=== PATIENT | male | born 1945 | race Caucasian/White ===

== ENCOUNTER 2016-03-22 06:15 | Inpatient (IN) ==
[2016-03-22] MEDS ORDERED: NS 1,000 ML IV PRN (06:41)
--- NOTE | 2016-03-22 06:48 | PROVIDER DOCUMENTATION ---
HPI-Neurological Disorder <Luis Manuel Aguilar - Last Filed: 03/22/16 09:15> - General Source: patient, family Unable to obtain history due to:: other (Marginal history due to CVA) - History of Present Illness-Neuro Context: reports: impaired speech, paresthesia, facial droop, other (slurred speech) Approximate time patient was last seen normal?: 22:00 Character of Altered Mental Status: reports: unchanged from baseline Any recent trauma/injury?: reports: none Character of Deficits: reports: new weakness, altered sensation, impaired speech , impaired swallowing, decreased ability to stand, decreased ability to walk Cognitive Baseline: alert, oriented x3 Gait Baseline: unable to walk Associated Symptoms: reports: paresthesia. denies: headache Similar Symptoms Previously?: No <Tay Harden - Last Filed: 03/22/16 10:07> - General Chief Complaint: Stroke-Like Symptoms Stated Complaint: extremity pain Time Seen by Provider: 03/22/16 06:42 Allergies/Adverse Reactions: Patient Allergies Allergy/AdvReac Type Severity Reaction Status Date / Time No Known Allergies Allergy Verified 03/22/16 06:46 Home Medications: No Home Medications 03/22/16 - History of Present Illness-Neuro Nature of Presenting Problem: He awoke this am with slurred speech and rt hemiparesis. He was alert when he went to bed at 10 pm. He is known to have HTN and DM but cannot afford meds to treat either. 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 [facility] but has no hysician and is not treating DM or HTN (Tay Harden) Review of Systems - Adult - REVIEW OF SYSTEMS - ADULT ROS:: limited per condition Constitutional: reports: no symptoms reported Eyes: reports: no symptoms reported Ears, Nose, Mouth & Throat: reports: other (speech and swallowing problems) Cardiovascular: reports: no symptoms reported Respiratory: reports: no symptoms reported Gastrointestinal: reports: no symptoms reported Genitourinary: reports: no symptoms reported Musculoskeletal: reports: see HPI Integumentary: reports: no symptoms reported Neurological: reports: see HPI Psychiatric: reports: see HPI Endocrine: reports: increased thirst, polyuria, other (Known to have DM - notreatment) Hematologic/Lymphatic: reports: no symptoms reported Allergic/Immunologic: reports: no symptoms reported <Tay Harden - Last Filed: 03/22/16 10:07> Past History - Adult - PAST MEDICAL HISTORY-ADULT Review of Records: reports: Nursing Assessment Review Psychiatric: reports: denies history Endocrine/Immune: reports: Diabetes Diabetes Type: Type 2 Diabetes controlled by:: Diet - PRIOR SURGERIES/PROCEDURES Surgical/Procedure History: reports: none - SOCIAL HISTORY Smoking: denies Substance Use: none/never Living Situation: family <Tay Harden - Last Filed: 03/22/16 10:07> Physical Exam- Neurological - Physical Exam-Neuro Initial Vital Signs Reviewed: Yes General Appearance: mild distress, cachetic, slow to respond Eye Exam: bilateral eye: normal inspection HENMT: pharynx normal Head Injury: no evidence of injury Neck: non-tender Respiratory: chest non-tender, lungs clear, normal breath sounds Cardiovascular: normal peripheral pulses, regular rate, rhythm, extra beats ( split first heart tone) Abdominal Exam: non tender, soft, no organomegaly Lymphatic: no adenopathy Peripheral Pulses: radial (R): 2+, radial (L): 2+ Extremity: non-tender. 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 negative: normal speech Neurologic: facial droop, motor weakness, sensory deficit (bilateral stocking and glove neuropathy) Integumentary: normal color Psych/Mental Status: negative: normal mood/affect - Glascow Coma Scale Total Glascow Score: 15 <Tay Harden - Last Filed: 03/22/16 10:07> Progress - EKG 1 Time of EKG reading by physician:: 06:15 EKG Read and Signed by:: Tay Harden EKG Interpretation (*Must complete 3 of following elements*): Abnormal Rate: 89 Rhythm: NSR [place]: normal QRS: RBB AR Interval: normal ST Wave: non-specific ST changes - XRAY 1 XRAY Study: Chest Impression: Abnormal XRAY Interpretation: low lung volumes otherwise nml - CT/MRI 1 CT Study: Head Impression: Normal CT Results: negative <Luis Manuel Aguilar - Last Filed: 03/22/16 09:15> - XRAY 1 XRAY Study: Chest (NAD) Impression: Normal - CT/MRI 1 CT Study: Head Impression: Abnormal, See EMR Report <Tay Harden - Last Filed: 03/22/16 10:07> - PLAN OF CARE/RESULTS Progress/Plan/Lab Results: plan of care-cva work up (Luis Manuel Aguilar) Reassed and discussed CT results. (Tay Harden) Departure <Luis Manuel Aguilar - Last Filed: 03/22/16 09:15> - Departure Time of Disposition Order: 10:04 Certified Medical Emergency: Emergent <Tay Harden - Last Filed: 03/22/16 10:07> - Departure DIAGNOSIS: Ischemic brain injury, Diabetes 1.5, managed as type 2, Hypertension Disposition: ADMITTED INPATIENT 09 Condition: Fair Attestation - Scribe Verification/Attestation Scribe:: Luis Manuel Aguilar Acting as Scribe for:: Tay Harden Scribe documention review:: This chart was documented by a scribe and accurately reflects the service the provider performed and the decisions made by the provider. <Luis Manuel Aguilar - Last Filed: 03/22/16 09:15> Physician Attestation - Physician Attestation I, the provider, attest to the following statement:: Tay Harden Physician documentation Attestation:: This documentation recorded by the scribe accurately reflects the service I personally performed and the decisions made by me. <Luis Manuel Aguilar - Last Filed: 03/22/16 09:15>
[2016-03-22 07:01] LABS: MANUAL DIFF NEEDED? NO
[2016-03-22 07:11] LABS: BASO% 0.2 % (0.0-0.8); EOS# 0.08 X1000 (0.0-0.7); EOS% 1.6 % (0.0-10.0); HEMOGLOBIN 14.8 g/dL (14.0-18.0); IMM GRAN# 0.03 X1000 (0.0-0.04); IMM GRAN% 0.6 % (0.0-0.5); LYMPH# 1.08 X1000 (1.2-3.4); LYMPH% 22.1 % (20.5-51.1); MCHC 36.1 g/dL (33-37); MONO# 0.68 X1000 (0.11-0.59); MONO% 13.9 % (1.7-9.3); MPV 10.4 FL (7.4-10.4); NEUT% 61.6 % (42.2-75.2); PLT 269 X1000 (130-400); RBC 4.94 XMIL (4.7-6.1)
[2016-03-22 07:19] LABS: INR 1.03; PROTIME 10.9 Seconds (9.2-11.7); PTT 23.4 Seconds (22.0-36.0)
[2016-03-22 07:30] LABS: URINE CULTURE NEEDED? NO; URINE SOURCE CLEAN CATCH
[2016-03-22 07:31] LABS: URINE MICRO REVIEW NEEDED? NO
[2016-03-22] MEDS ORDERED: ASPIRIN PO ONE (07:31)
[2016-03-22 07:36] LABS: UR EPITHELIAL CELLS <10 /HPF (<10); URINE BACTERIA NEGATIVE /HPF; URINE RBC <10 /HPF (<10); URINE WBC <10 /HPF (<10)
[2016-03-22 07:37] LABS: BILIRUBIN URINE NEGATIVE (NEGATIVE); BLOOD URINE NEGATIVE (NEGATIVE); COLOR YELLOW; GLUCOSE URINE >1000 mg/dL (NEGATIVE); LEUKOCYTES URINE NEGATIVE (NEGATIVE); NITRITE URINE NEGATIVE (NEGATIVE); PH URINE 5.5; PROTEIN URINE 30 mg/dL (NEGATIVE); SP GRAVITY URINE 1.041; TURBIDITY URINE CLEAR (CLEAR); UROBILINOGEN URINE NORMAL (NORMAL)
--- NOTE | 2016-03-22 07:49 | Diag Imaging Result Document ---
PROCEDURE NAME: CHEST-PORTABLE - 03/22/2016 PORTABLE CHEST X-RAY, 03/22/2016: COMPARISON: None. FINDINGS: Lung volumes are low. There is some trace atelectasis at the lateral left lung base. Accounting for this, no definite infiltrates. Heart size and pulmonary vascularity is normal. IMPRESSION: No definite acute disease.
[2016-03-22 07:50] LABS: AGAP 16; ALBUMIN 3.4 g/dL (3.5-5.0); ALKALINE PHOSPHATASE 72 U/L (32-122); BUN 13 mg/dL (8-22); CALCIUM 7.7 mg/dL (8.8-10.2); CHLORIDE 106 mmol/L (98-107); COSMO 296; GOT 8 U/L (10-34); GPT 8 U/L (10-44); POTASSIUM 2.7 mmol/L (3.5-5.1); SODIUM 144 mmol/L (136-145); TCO2 22 mmol/L (25-35); TOTAL BILIRUBIN 0.39 mg/dL (0.20-1.00); TOTAL PROTEIN 5.5 g/dL (6.3-8.3)
--- NOTE | 2016-03-22 07:52 | Diag Imaging Result Document ---
PROCEDURE NAME: HEAD W/O CONTRAST - 03/22/[address]: COMPARISON: None. FINDINGS: The ventricles and sulci are normal in size and contour. There is no mass, hemorrhage, or evidence of acute ischemia. The bony calvaria is intact. The visualized paranasal sinuses and mastoid air cells are clear. IMPRESSION: Negative head CT.
[2016-03-22 08:00] LABS: UR AMPHETAMINES QUAL NONE DETECTED (NONE DETECT); UR BARBITUATES QUAL NONE DETECTED (NONE DETECT); UR BENZODIAZEPIN QUAL NONE DETECTED (NONE DETECT); UR CANNABINOIDS QUAL NONE DETECTED (NONE DETECT); UR COCAINE QUAL NONE DETECTED (NONE DETECT); UR METHADONE QUAL NONE DETECTED (NONE DETECT); UR OPIATES QUAL NONE DETECTED (NONE DETECT); UR OXYCODONE QUAL NONE DETECTED (NONE DETECT); UR PCP QUAL NONE DETECTED (NONE DETECT)
[2016-03-22] MEDS ORDERED: LABETALOL IV ONE (09:50)
[2016-03-22] MEDS ORDERED: HUMULIN R SUBQ ONE (09:51)
[2016-03-22] MEDS ORDERED: POTASSIUM CHLORIDE 40 MEQ/SWI 100 ML IV ONE (10:27)
[2016-03-22 10:58] LABS: HDL 42 mg/dL (35-55); LDL 167 mg/dL; TRIGLYCERIDES 115 mg/dL (39-160); VLDL 23 mg/dL
--- NOTE | 2016-03-22 12:04 | Diag Imaging Result Document ---
PROCEDURE NAME: MRI BRAIN W W/O CONTRAST - 03/22/2016 MRI BRAIN WITHOUT AND WITH INTRAVENOUS CONTRAST: COMPARISON: Head CT earlier 03/22/2016. FINDINGS: There is an area of restricted diffusion at the paramedian left apolonia. This is compatible with an acute infarction. No intracranial mass or hemorrhage. No other areas of abnormal signal. No abnormal contrast enhancement. Midline structures are unremarkable. IMPRESSION: Acute left paramedian pontine infarction.
--- NOTE | 2016-03-22 12:05 | Diag Imaging Result Document ---
PROCEDURE NAME: MRA NECK W/CONT - 03/22/2016 MR ANGIOGRAM OF THE NECK WITH INTRAVENOUS CONTRAST: COMPARISON: None. FINDINGS: The vessels of the neck are normal. No evidence of stenosis or aneurysm. Anatomy is normal. IMPRESSION: Negative exam.
--- NOTE | 2016-03-22 12:08 | Diag Imaging Result Document ---
PROCEDURE NAME: MRA BRAIN W/O CONTRAST - 03/22/2016 MR ANGIOGRAM OF THE HEAD: COMPARISON: None. FINDINGS: Noncontrast [id number] technique was used. The intracranial arterial vessels are all normal. There is no stenosis or aneurysm. IMPRESSION: Normal exam.
--- NOTE | 2016-03-22 13:09 | HISTORY AND PHYSICAL ---
PRIMARY CARE PROVIDER: No one. CHIEF COMPLAINT: Stroke symptoms, weak, unable to move right side. HISTORY OF PRESENT ILLNESS: Mr. Asif Varner is a 70-year-old male who states that he has a history of diabetes type 2 and hypertension but does not take medications for them as he is unable to afford them. He also states that he has chronic hand and feet numbness. For the last 2- 3 months, he has been using a walker as his gait has turned into a shuffling gait. Prior to that, he was walking. He has not sought medical attention for that. Yesterday, around 10 p.m. at night, he and his went to bed. She states that he was normal at that time. He woke up at 5 a.m. this morning because he had to use the restroom and was found to be unable to move his right arm or leg and that his speech was slurred. He was brought here. Workup with head CT, currently negative, and MRI and MRA of brain and neck have been ordered. Upon assessment, he has a right facial droop. He has dysarthria. His tongue deviates to the right. He has complete hemiparesis of the right upper and lower extremity and dysarthria. He also states he has difficulty swallowing. Other symptoms that he has been having lately have been excessive thirst and urination. Other lab findings were potassium of 2.7, elevated blood sugar up to 296, anion gap of 60, urine ketones were 60, and glucose was greater than 1000 in the urine. In the ER, he has received chewable aspirin 243 mg. They gave him a 1 time dose of 10 of IV labetalol. Will hold on antihypertensives for now, allow for up to 180 systolic blood pressure to allow for better perfusion of the brain. He received 5 units subcutaneous insulin and 40 mEq of potassium and IV fluid bolus. Will admit him to the medical floor. Continue with stroke workup. Echocardiogram. Follow up on MRI/MRA of the brain and neck. Allow for permissive hypertension to perfuse his brain. Treat his diabetes. He does have a hemoglobin A1c that has come back at 12.0. He is currently NPO per the stroke protocol. We will do a sliding scale insulin and continue to follow his low-grade hyperosmolar/hyperglycemic state and we will consult Neurology. OT, PT, and ST to see. PAST MEDICAL HISTORY: 1. Untreated diabetes type 2. Hemoglobin A1c is 12.0, so, currently uncontrolled. 2. Hypertension. 3. Neuropathy of the hands and feet. 4. 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 5. Dyslipidemia. PAST SURGICAL HISTORY: None. 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 He is retired. He is and living with his . He denies alcohol, tobacco, or illicit drug use. FAMILY HISTORY: Father had a CVA. REVIEW OF SYSTEMS: Difficult to obtain but he was able to nod and say yes or no to many questions. He denied pain. He denied nausea, vomiting, or diarrhea. He denied shortness of breath and all other pertinent positives are in the above HPI. ALLERGIES: No known drug allergies. HOME MEDICATIONS: None. LABORATORY DATA: White blood cells 4000. Hemoglobin 14. Hematocrit 41. Platelet count 269,000. INR 1.03. Sodium 144. Potassium 2.7. BUN 13. Creatinine 0.3. GFR is greater than 60. Glucose most recent is 266. Hemoglobin A1c is 12. Calcium 7.7. Total bilirubin 0.39. AST . ALT 8. Troponins less than 0.01. Total protein 5.5. Albumin 3.4. Triglycerides 115. Total cholesterol 232. Total cholesterol band 232. LDL 167. Very low density is 23. HDL 42. TSH is 1.23. Urinalysis: 30 protein, greater than 1000 glucose with 60 ketones in the urine; otherwise, negative for UTI. Urine drug screen negative. IMAGING: MRI and MRA of the brain and neck all are pending. Head CT: No intracranial bleed; otherwise, a negative head CT. The sinuses are also clear. Chest x-ray: Negative for any acute findings. PHYSICAL EXAMINATION: VITAL SIGNS: Temperature 97.7 degrees. Heart rate 80. Respiratory rate 20. Blood pressure was up to 191/108. It is down to 145/49 and 100% on room air. GENERAL: Mr. Varner is a 70-year-old, ill-appearing, male. He is in no acute distress but has difficulty pronouncing words to answer all questions. HEENT: He is atraumatic, normocephalic. He has a right facial droop. Tongue deviates to the right. Pupils are equal, round, reactive. Mucous membranes are dry. Extraocular movements were intact. No issues with peripheral vision loss. He also states that his vision is normal for him. NECK: No carotid bruits heard. No JVD noted. Trachea is midline. CARDIOVASCULAR: S1, S2. Regular rate and rhythm. No rubs, gallops or murmurs . PULMONARY: Clear to auscultate with bilateral breath sounds. No accessory muscle use or work of breathing noted. GI: Soft, nontender, nondistended. Positive bowel sounds x4. NEURO: Oriented x3. Right facial droop with dysarthria. He is alert. He can follow commands. He has complete hemiparalysis of the right upper and lower extremity. He has a 4/5 strength in the left upper extremity and 2-3 strength in the left lower extremity. The patient also reports that he has had a shuffling gait for the last 2-3 months and has had to use a walker and that his strength is already weak prior to this event. SKIN: Warm, dry, and intact. EXTREMITIES: No edema noted, +2 dorsalis and radial pulses. ASSESSMENT AND PLAN: 1. Transient ischemic attack versus cerebrovascular accident with right hemiparalysis. He has numbness in the right upper and lower extremity but still has sensation to touch. Right facial droop. Right tongue deviation. Pupils equal and reactive. Will do PT, OT and ST. Follow up on MRI/MRA of the brain and neck. Echocardiogram to rule out cardiac origin. Will consult Dr. Holman. There is a question as to whether he maybe has some Parkinson's that has started in the last 2-3 months as he also reports a shuffling gait and needing a walker for ambulation. We will continue with aspirin and a statin. 2. Hypokalemia. Potassium level of 2.7. He got 40 mEq IV piggyback. Will do IV fluids with potassium in it at 85 an hour continuous. Recheck a BMP around 6 p.m. 3. Uncontrolled diabetes type 2 with mild hyperosmolar, hyperglycemic state. Blood glucoses range anywhere from 296-266. Received 5 units of insulin. His anion gap is 16. His urine ketone was 60 and urine glucose was greater than 1000 and his hemoglobin A1c came back at 12. He is aware that he has diabetes type 2 and he does not treat it. He does not have the money for medications per him and his . We will do pattern blood glucoses and will do sliding scale insulin low dose for now as he is NPO per the stroke protocol, increase the sliding scale as able, and will also repeat a BMP around 6 p.m. 4. 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 Question as to whether there may be some Parkinson's involved. Physical therapy and occupational therapy should be able to help. 5. Protein calorie malnutrition. Currently NPO but will advance diet as able. Evaluate speech therapy recommendations. 6. Hyperlipidemia. Total cholesterol greater than 200. High-dose statin has been started at this time per stroke protocol. May need to decrease given his disuse myopathy. Liver enzymes are normal. 7. Neuropathy of the hands and feet noted. No treatment at home. 8. Deep venous thrombosis prophylaxis. We will do Lovenox. 9. Gastrointestinal prophylaxis. We will do IV Protonix as he cannot swallow at this moment. Dictated by CELIA Pascual for Jaspreet Garza MD
[2016-03-22] MEDS ORDERED: TYLENOL PO PRN (13:55)
[2016-03-22] MEDS ORDERED: ZOFRAN IV PRN (13:55)
[2016-03-22] MEDS: HUMULIN R SUBQ SCH ×3 (15:33→21:19)
[2016-03-22] MEDS: NS + KCL 20 MEQ 1,000 ML IV SCH (15:47)
[2016-03-22 16:06] LABS: INR 1.06; PROTIME 11.2 Seconds (9.2-11.7)
--- NOTE | 2016-03-22 17:54 | ECHO REPORT ---
ORDER DATE: 03/22/2016 INDICATION: Stroke, diabetes. FINDINGS: 1. Right atrium is mildly enlarged at 4.8 cm. 2. Mild tricuspid regurgitation. RV systolic pressure is 35. 3. Normal RV size and systolic function. 4. Mild pulmonic insufficiency. 5. Mild left atrial enlargement at 4.7 cm. 6. No mitral prolapse. Mild mitral regurgitation. 7. Normal LV size, end-diastolic dimension of 3.4. There is moderate concentric left ventricular hypertrophy with a posterior and interventricular septal wall thickness 1.6 cm each. Normal to hyperdynamic LV systolic function. The EF appears to be greater than 70%. No segmental wall motion abnormalities noted. 8. Aortic valve opens well and appears trileaflet. No evidence of stenosis or insufficiency. 9. Aorta appears normal in visualized segments. 10. No pericardial effusion seen.
--- NOTE | 2016-03-22 18:01 | CONSULTATION ---
DATE OF CONSULTATION: 03/22/2016 LOCATION: ICU bed 9. HISTORY OF PRESENT ILLNESS: Mr. Varner is 70 years old and he has had a stroke. He reports noticing suddenly weakness in the right limbs, inability to stand, slurred speech, with weak voice. There was no associated headache, altered awareness, memory gap. He did not notice any left-sided deficit. There is no previous history of stroke. He has risk factors including hypertension, and he was not treating that. Workup here includes brain MRI showing left paramedian pontine infarction, and that appears to be acute. Brain MRA and cervical MRA are reported unremarkable. He presented with elevated blood pressure and received a single dose of labetalol. He has been afebrile. I have reviewed his lab work listed in the computer. PHYSICAL EXAMINATION: On exam, Mr. Varner is awake, alert, attentive and appropriate. Speech is low volume and significantly dysarthric, but can be understood. He did well on bedside testing of language function. Memory is good. Head and neck are unremarkable. Visual hoffman are full tested by confrontational finger counting. He has good lateral and vertical extraocular movement. Facial motility is diminished on the right in an upper motor neuron pattern. Gag is intact. Tongue protrudes slightly to the right. He reports equal sensation tested by light touch on the left and the right cheek. Shoulder shrug is diminished on the right. He has good power in the left limbs. He has flaccid right arm and demonstrates only 1/5 power in the right iliopsoas, 0/5 in the right anterior tibialis. He did well with left [id number]. He has good proprioception at the right index finger MP joint. He reports equal sensation over the limbs. I did not ask him to stand or walk. IMPRESSION: Relatively pure motor right hemiplegia, no definite sensory, language, vision deficit. This is consistent with acute ischemic stroke and MRI demonstrates lesion that would cause this motor deficit. He has risk factors for cerebrovascular ischemic problems, including age and untreated hypertension. He appears to have stabilized through the day without deterioration. Our management for presumed small-vessel disease is much less certain than for larger vessel stroke. However, I would continue being very conservative with blood pressure management, particularly in light of his presumed tolerance for higher blood pressures. We can plan to bring blood pressure under better control gradually later. We can treat lipids and blood sugar aggressively if needed. I would continue aspirin and DVT prophylaxis as is ordered. I do not have any urgent suggestion tonight for further workup. Thanks for asking me to see Mr. Varner. [facility]ITALL[facility]
[2016-03-22 18:32] LABS: AGAP 11; BUN 19 mg/dL (8-22); CALCIUM 9.4 mg/dL (8.8-10.2); CHLORIDE 102 mmol/L (98-107); COSMO 290; POTASSIUM 2.8 mmol/L (3.5-5.1); SODIUM 142 mmol/L (136-145); TCO2 29 mmol/L (25-35)
[2016-03-22] MEDS ORDERED: LIPITOR PO SCH (21:00)
[2016-03-23] MEDS: NS + KCL 20 MEQ 1,000 ML IV SCH ×2 (03:40→15:08)
[2016-03-23 05:37] LABS: MANUAL DIFF NEEDED? NO
[2016-03-23 05:57] LABS: BASO% 0.4 % (0.0-0.8); EOS# 0.09 X1000 (0.0-0.7); EOS% 1.8 % (0.0-10.0); HEMATOCRIT 37.3 % (42.0-52.0); HEMOGLOBIN 13.1 g/dL (14.0-18.0); LYMPH# 1.16 X1000 (1.2-3.4); LYMPH% 22.9 % (20.5-51.1); MCH 30.2 PG (27-31); MCHC 35.1 g/dL (33-37); MCV 85.9 FL (81-99); MONO# 0.73 X1000 (0.11-0.59); MONO% 14.4 % (1.7-9.3); NEUT% 60.5 % (42.2-75.2); PLT 246 X1000 (130-400); RBC 4.34 XMIL (4.7-6.1)
[2016-03-23 06:06] LABS: AGAP 18; ALBUMIN 3.6 g/dL (3.5-5.0); ALKALINE PHOSPHATASE 66 U/L (32-122); BUN 20 mg/dL (8-22); CALCIUM 8.8 mg/dL (8.8-10.2); CHLORIDE 103 mmol/L (98-107); COSMO 290; GOT 12 U/L (10-34); GPT 8 U/L (10-44); SODIUM 143 mmol/L (136-145); TCO2 22 mmol/L (25-35); TOTAL BILIRUBIN 0.42 mg/dL (0.20-1.00); TOTAL PROTEIN 6.1 g/dL (6.3-8.3)
[2016-03-23] MEDS: HUMULIN R SUBQ SCH ×4 (06:15→20:15)
[2016-03-23] MEDS: APRESOLINE IV PRN (06:15)
[2016-03-23] MEDS: ASPIRIN PR SCH (08:00)
[2016-03-23] MEDS: PROTONIX IV SCH (08:00)
[2016-03-23] MEDS: LOVENOX SUBQ SCH (08:00)
[2016-03-23] MEDS: SODIUM CHLORIDE 0.9% INJ SCH (08:00)
[2016-03-23] MEDS ORDERED: POTASSIUM CHLORIDE 60 MEQ in NS 500 ML IV ONE (09:07)
--- NOTE | 2016-03-23 12:17 | PROGRESS NOTE ---
DATE: 03/23/2016 Mr. Varner looks about the same now as when I saw him last night. He continues with right hemiplegia. He is not able to move the fingers on his right hand. He continues to have good proprioception at the right index finger. He has good sensation on brief testing over the right limbs. He has full right visual field. Speech remains very dysarthric but there is no definite evidence of language dysfunction. IMPRESSION: Relatively pure motor right hemiplegia with MRI evidence of pontine infarction to account for that deficit. I do not think we need any further urgent neurologic workup. I encouraged him to be patient. We discussed possibility that he might make significant recovery but no guarantee for that. Thanks for allowing me to follow Mr. Varner.
[2016-03-24] MEDS: NS + KCL 20 MEQ 1,000 ML IV SCH ×2 (02:24→14:13)
--- NOTE | 2016-03-24 05:14 | PROGRESS NOTE ---
DATE: 03/23/2016 SUBJECTIVE: Patient is feeling fine. is at bedside. No new neurological signs. OBJECTIVE: Vital Signs: Temperature 97.9, heart rate 74, respiratory rate 18, blood pressure 198/96, O2 saturation 97% on room air. General: This is a 70-year-old male, lying in bed in no acute distress. HEENT: Head is normocephalic, atraumatic. Anicteric sclerae. Pale conjunctivae. Mucous membranes moist. Pupils equally round, and reactive to light and accommodation. Neck supple. No JVD noted. No carotid bruits. No lymphadenopathy. No thyromegaly. Cardiovascular: S1 and S2 heard. No murmurs, gallops, or rubs. Regular rate and rhythm. Respiratory: Clear bilaterally to auscultation. No work of breathing or using accessory muscles. Abdomen is soft, nontender to palpation. Bowel sounds present. No organomegaly. Extremities: No clubbing, cyanosis, or edema. Peripheral pulses present in both legs. Neurologic: Flaccid dry arm. The patient has 1/5 muscle strength. Also, in the right lower extremity it is 1/5 muscle strength. Left side, the patient can move his body normally. ASSESSMENT AND PLAN: Acute left paramedian pontine stroke. The patient by now is doing fine. He was evaluated by Dr. Holman with no new suggestions for him. We are allowing some permissive hypertension on this patient. We will treat high blood pressure if greater than 200 systolic blood pressure. Also, the patient is receiving aspirin 300 mg rectally. Physical therapy is supposed to follow this patient as well as occupational therapy. We are waiting for the results of the swallow evaluation. MRA of the brain and neck did not show anything abnormal. We are going to also treat aggressively diabetes because hemoglobin A1c is pretty high at 12.0. Lipid panel returned a little bit elevated. Triglycerides normal. Normal cholesterol. We will continue with the same management. We are going to watch this patient 1 more day in the Intensive Care Unit to see if there are no more new neurological symptoms and blood pressure is better controlled. Probably tomorrow, we can transfer this patient out of the unit.
[2016-03-24] MEDS: HUMULIN R SUBQ SCH ×4 (06:08→21:24)
[2016-03-24] MEDS: SODIUM CHLORIDE 0.9% INJ SCH (08:36)
[2016-03-24] MEDS: ASPIRIN PR SCH (08:36)
[2016-03-24] MEDS: LOVENOX SUBQ SCH (08:36)
[2016-03-24] MEDS: PROTONIX IV SCH (08:36)
[2016-03-24 08:51] LABS: MANUAL DIFF NEEDED? NO
[2016-03-24 08:57] LABS: BASO% 0.2 % (0.0-0.8); EOS# 0.09 X1000 (0.0-0.7); HEMATOCRIT 39.5 % (42.0-52.0); HEMOGLOBIN 13.7 g/dL (14.0-18.0); IMM GRAN# 0.02 X1000 (0.0-0.04); IMM GRAN% 0.4 % (0.0-0.5); LYMPH# 1.17 X1000 (1.2-3.4); LYMPH% 25.7 % (20.5-51.1); MCH 29.7 PG (27-31); MCHC 34.7 g/dL (33-37); MCV 85.5 FL (81-99); MONO# 0.53 X1000 (0.11-0.59); MONO% 11.6 % (1.7-9.3); MPV 9.8 FL (7.4-10.4); NEUT% 60.1 % (42.2-75.2); PLT 248 X1000 (130-400); RBC 4.62 XMIL (4.7-6.1)
[2016-03-24 09:22] LABS: AGAP 12; BUN 16 mg/dL (8-22); CALCIUM 8.6 mg/dL (8.8-10.2); CHLORIDE 100 mmol/L (98-107); COSMO 284; POTASSIUM 3.4 mmol/L (3.5-5.1); SODIUM 139 mmol/L (136-145); TCO2 27 mmol/L (25-35)
--- NOTE | 2016-03-24 09:46 | PROGRESS NOTE ---
DATE: 03/24/2016 SUBJECTIVE: 1. Patient is feeling fine. It is noted better speech today. 2. at bedside did not report any new neurological symptoms. OBJECTIVE: Vital Signs: Temperature is 98.6 degrees, heart rate 70 respiratory rate 18, blood pressure 154/87, and O2 saturation 97% on room air. General Examination: This is a 70-year-old male, lying in bed in no acute distress. HEENT: Head is normocephalic, atraumatic. Anicteric sclerae and pale conjunctivae. Mucous membranes moist. Neck: Supple. No JVD. No carotid bruits. No lymphadenopathy. No thyromegaly. Cardiovascular exam: S1, S2 heard. No murmurs, gallops, or rubs. Regular rate and rhythm. Respiratory exam: Clear bilaterally to auscultation. No work of breathing or using accessory muscles. Abdomen: Soft, nontender to palpation. Bowel sounds present. No organomegaly. Extremities: No clubbing, cyanosis, or edema. Peripheral pulses present in both legs. Neurological exam: Flaccid right arm with 1/5 muscle strength in the right lower extremity. There is 1/5 muscle strength as well on the left side. The patient can move his body normally. LABORATORY DATA: White cell count 4.55, hemoglobin 13.7, hematocrit 39.5, platelets 248. ASSESSMENT AND PLAN: 1. Acute left paramedian pontine stroke. This patient is doing fine. No new neurological symptoms. The patient is being followed with Dr. Holman. No new suggestions for him. 2. Permissive hypertension. He is receiving aspirin 300 mg rectally. At this time, we are going to switch it to oral 325 because the patient currently has passed a swallow evaluation and, upon my examination, he was able to eat normally without any chalking. We are going to transfer the patient to a regular room, and our next step will be to consult social work associate to get a bed for him in a rehabilitation facility (that will probably next Saturday or Saturday).
[2016-03-25] MEDS: NS + KCL 20 MEQ 1,000 ML IV SCH ×2 (01:32→13:28)
[2016-03-25] MEDS: APRESOLINE IV PRN (03:12)
[2016-03-25 06:24] LABS: MANUAL DIFF NEEDED? NO
[2016-03-25] MEDS: HUMULIN R SUBQ SCH ×4 (06:25→21:34)
[2016-03-25 06:26] LABS: BASO% 0.2 % (0.0-0.8); EOS# 0.14 X1000 (0.0-0.7); EOS% 2.8 % (0.0-10.0); HEMATOCRIT 38.8 % (42.0-52.0); HEMOGLOBIN 13.7 g/dL (14.0-18.0); LYMPH# 1.07 X1000 (1.2-3.4); LYMPH% 21.6 % (20.5-51.1); MCH 29.7 PG (27-31); MCHC 35.3 g/dL (33-37); MCV 84.2 FL (81-99); MONO# 0.83 X1000 (0.11-0.59); MONO% 16.7 % (1.7-9.3); MPV 10.3 FL (7.4-10.4); NEUT% 58.7 % (42.2-75.2); PLT 238 X1000 (130-400); RBC 4.61 XMIL (4.7-6.1)
[2016-03-25 06:40] LABS: AGAP 15; BUN 16 mg/dL (8-22); CALCIUM 8.8 mg/dL (8.8-10.2); CHLORIDE 102 mmol/L (98-107); COSMO 289; SODIUM 141 mmol/L (136-145); TCO2 24 mmol/L (25-35)
[2016-03-25] MEDS ORDERED: KLOR-CON PO ONE (08:26)
[2016-03-25] MEDS ORDERED: INSULIN PEN NEEDLES ONE (08:35)
[2016-03-25] MEDS: LANTUS SUBQ SCH (08:39)
[2016-03-25] MEDS: GLUCOPHAGE PO SCH ×2 (08:39→17:01)
[2016-03-25] MEDS: ASPIRIN PO SCH (08:39)
[2016-03-25] MEDS: PROTONIX IV SCH (08:39)
[2016-03-25] MEDS: SODIUM CHLORIDE 0.9% INJ SCH (08:39)
[2016-03-25] MEDS: LOVENOX SUBQ SCH (08:39)
--- NOTE | 2016-03-25 10:14 | PROGRESS NOTE ---
DATE: 03/25/2016 SUBJECTIVE: Patient is feeling fine. Eating fine. No complaints at this time. OBJECTIVE: Vital Signs: Temperature 97.1 degrees, heart rate 74, respiratory rate 20, blood pressure 191/87, O2 saturation 97% on room air. General Examination: This is a 70-year-old, male, lying in bed, in no acute distress. HEENT: Head is normocephalic and atraumatic. Anicteric sclerae and pale conjunctivae. Mucous membranes moist. Neck: Supple. No JVD noted. No carotid bruits. No lymphadenopathy. No thyromegaly. Cardiovascular Examination: S1 and S2 heard. No murmurs, gallops, or rubs. Regular rate and rhythm. Respiratory Examination: Clear bilaterally to auscultation. No work of breathing or using accessory muscles. Abdomen: Soft, nontender to palpation. Bowel sounds present. No organomegaly. Extremities: No clubbing, cyanosis, or edema. Peripheral pulses present in both legs. Neurological Examination: Flaccid right arm, 1/5 muscle strength, as well as in the right lower extremity. Left lower extremity is fine. Laboratory Data: CBC is unremarkable. BMP shows potassium 3 and glucose 224. ASSESSMENT/PLAN: 1. Acute left paramedian pontine stroke. No new neurological symptoms. The patient is being followed by neurology. 2. Permissive hypertension. Blood pressure in the morning is getting high of 187-190s systolic blood pressure. At this time, we are going to continue allowing permissive hypertension for at least 72 hours and then we will start controlling the blood pressure. 3. Diabetes mellitus. Glucose is really high today in the BMP of 224 so we are going to add metformin and also Lantus to his current treatment. We will see how this patient does. 4. Overall, this patient is doing good. Physical therapy is working with this patient. Because of lack of beds, patient has not been transferred to a regular floor yet. We will see if we can get a bed for him. Near future plans with him is to try to send him to a rehabilitation facility on Saturday or Saturday.
[2016-03-26] MEDS: NS + KCL 20 MEQ 1,000 ML IV SCH ×2 (00:06→15:52)
[2016-03-26 06:25] LABS: MANUAL DIFF NEEDED? NO
[2016-03-26 06:32] LABS: BASO% 0.2 % (0.0-0.8); EOS# 0.12 X1000 (0.0-0.7); EOS% 2.6 % (0.0-10.0); HEMATOCRIT 37.9 % (42.0-52.0); HEMOGLOBIN 13.3 g/dL (14.0-18.0); LYMPH# 1.17 X1000 (1.2-3.4); LYMPH% 25.4 % (20.5-51.1); MCH 29.8 PG (27-31); MCHC 35.1 g/dL (33-37); MCV 84.8 FL (81-99); MONO# 0.73 X1000 (0.11-0.59); MONO% 15.9 % (1.7-9.3); MPV 9.9 FL (7.4-10.4); NEUT% 55.9 % (42.2-75.2); PLT 235 X1000 (130-400); RBC 4.47 XMIL (4.7-6.1)
[2016-03-26] MEDS: HUMULIN R SUBQ SCH ×4 (06:40→20:59)
[2016-03-26 06:52] LABS: AGAP 15; BUN 16 mg/dL (8-22); CALCIUM 8.6 mg/dL (8.8-10.2); CHLORIDE 100 mmol/L (98-107); COSMO 285; POTASSIUM 3.5 mmol/L (3.5-5.1); SODIUM 139 mmol/L (136-145); TCO2 24 mmol/L (25-35)
[2016-03-26] MEDS: PROTONIX IV SCH (07:47)
[2016-03-26] MEDS: SODIUM CHLORIDE 0.9% INJ SCH (07:47)
[2016-03-26] MEDS: LANTUS SUBQ SCH ×2 (07:48→08:03)
[2016-03-26] MEDS: GLUCOPHAGE PO SCH ×2 (07:48→17:14)
[2016-03-26] MEDS: LOVENOX SUBQ SCH ×2 (07:48→08:03)
[2016-03-26] MEDS: ASPIRIN PO SCH ×2 (07:48→08:02)
[2016-03-26] MEDS ORDERED: AMBIEN PO PRN (13:16)
[2016-03-26] MEDS: PRINIVIL PO SCH (15:58)
--- NOTE | 2016-03-26 16:08 | PROGRESS NOTE ---
DATE: 03/26/2016 SUBJECTIVE: Patient is feeling fine. Eating fine. No complaints at this time. OBJECTIVE: Vital Signs: Temperature 98 degrees, heart rate 72. Blood pressure 152/69, O2 saturation 98% on room air. General: This is a 70-year-old male, lying in bed, in no acute distress. HEENT: Head is normocephalic, atraumatic. Anicteric sclerae and pale conjunctivae. Mucous membranes moist. Neck: Supple. No JVD noted. No carotid bruits. No lymphadenopathy. No thyromegaly. Cardiovascular: S1, S2 heard. No murmurs, gallops, or rubs. Regular rate and rhythm. Respiratory: Clear bilaterally to auscultation. No work of breathing or using accessory muscles. Abdomen: Soft, nontender to palpation. Bowel sounds present. No organomegaly. Extremities: No clubbing, cyanosis, or edema. Peripheral pulses present in both legs. Neurological: Plastic arm and leg on the right side with 1/5 muscle strain in the left lower and upper extremity are fine. LABORATORY DATA: White cell count 4.60, hemoglobin 13.3, hematocrit 37.9, platelets 235,000. BMP unremarkable except glucose 216. ASSESSMENT/PLAN: 1. Acute left paramedian pontine stroke. No new neurological symptoms. 2. Permissive hypertension. Blood pressure has been high in the range of 197-200, but because of this stroke, we allowed some permissive hypertension and today is more than 72 hours from the stroke and we will diabetes and also blood pressure we will add lisinopril 10 mg 1 tablet p.o. daily to his current treatment. 3. Diabetes mellitus. We have started this patient on Lantus and metformin and we will wait a little bit more time to see the actions on metformin as of today, we are not going to increase Lantus. 4. Deconditioning. 5. We are waiting basically for a bed in the rehab facility.
[2016-03-27] MEDS: NS + KCL 20 MEQ 1,000 ML IV SCH ×2 (04:20→18:43)
[2016-03-27] MEDS: HUMULIN R SUBQ SCH ×4 (06:41→22:49)
[2016-03-27 07:13] LABS: MANUAL DIFF NEEDED? NO
[2016-03-27 07:17] LABS: BASO% 0.2 % (0.0-0.8); EOS# 0.14 X1000 (0.0-0.7); EOS% 3.2 % (0.0-10.0); HEMATOCRIT 38.3 % (42.0-52.0); HEMOGLOBIN 13.2 g/dL (14.0-18.0); LYMPH# 1.15 X1000 (1.2-3.4); LYMPH% 26.1 % (20.5-51.1); MCH 29.4 PG (27-31); MCHC 34.5 g/dL (33-37); MCV 85.3 FL (81-99); MONO# 0.64 X1000 (0.11-0.59); MONO% 14.5 % (1.7-9.3); MPV 10.1 FL (7.4-10.4); PLT 227 X1000 (130-400); RBC 4.49 XMIL (4.7-6.1)
[2016-03-27 07:47] LABS: AGAP 12; BUN 13 mg/dL (8-22); CALCIUM 8.8 mg/dL (8.8-10.2); CHLORIDE 101 mmol/L (98-107); COSMO 287; POTASSIUM 3.5 mmol/L (3.5-5.1); SODIUM 139 mmol/L (136-145); TCO2 26 mmol/L (25-35)
[2016-03-27] MEDS: GLUCOPHAGE PO SCH ×2 (10:26→17:53)
[2016-03-27] MEDS: ASPIRIN PO SCH (10:26)
[2016-03-27] MEDS: SODIUM CHLORIDE 0.9% INJ SCH (10:27)
[2016-03-27] MEDS: LANTUS SUBQ SCH ×2 (10:27→18:30)
[2016-03-27] MEDS: PROTONIX IV SCH (10:27)
[2016-03-27] MEDS: LOVENOX SUBQ SCH (10:27)
[2016-03-27] MEDS: PRINIVIL PO SCH (10:27)
--- NOTE | 2016-03-27 16:39 | PROGRESS NOTE ---
DATE: 03/27/2016 SUBJECTIVE: This patient is feeling about the same. He is feeling fine. He has no complaints today. OBJECTIVE: Vital Signs: Temperature 97.6 degrees, pulse 77, blood pressure 151/65, oxygen saturation 99% on room air. HEENT: Head normocephalic. No trauma. PERRLA. Neck supple. No JVD. No masses. Chest clear to auscultation. No wheezing. No rales. Abdomen is soft, nontender, nondistended. No hepatosplenomegaly. Cardiovascular: RRR. No murmurs. No gallops. No rubs. Extremities: No edema. No clubbing. No cyanosis. Neurologic: The patient has right- side hemiparesis, but the sensation is good. Left side 5/5 strength. LABORATORY: WBC 4.4, hemoglobin 13.2, hematocrit 38.3, platelets 139,000. Potassium 3.5, chloride 101, bicarbonate 26. BUN 13, creatinine 0.4, glucose 258, calcium 8.8. ASSESSMENT AND PLAN: 1. 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 No new neurological symptoms pending placement. This patient will go to a rehab facility. 2. Hypertension. The blood pressure is being better; today it has been in the 150s. We will monitor for one more day and then we will start giving him medications to decrease the blood pressure a little bit. 3. Type 2 diabetes. This patient is on Lantus. I will increase the Lantus from 20 to 30. He received a total dose of 16 units yesterday of sliding scale. 4. Deconditioning, aware. This patient will go to a rehab center as soon as we have a bed available.
[2016-03-28] MEDS: NS + KCL 20 MEQ 1,000 ML IV SCH (05:06)
[2016-03-28] MEDS ORDERED: INSULIN PEN NEEDLES ONE (06:22)
[2016-03-28 06:52] LABS: MANUAL DIFF NEEDED? NO
[2016-03-28 07:04] LABS: BASO% 0.4 % (0.0-0.8); EOS# 0.21 X1000 (0.0-0.7); EOS% 3.7 % (0.0-10.0); HEMATOCRIT 37.9 % (42.0-52.0); IMM GRAN# 0.03 X1000 (0.0-0.04); IMM GRAN% 0.5 % (0.0-0.5); LYMPH# 1.31 X1000 (1.2-3.4); MCH 29.5 PG (27-31); MCHC 34.3 g/dL (33-37); MCV 86.1 FL (81-99); MONO# 0.89 X1000 (0.11-0.59); MONO% 15.6 % (1.7-9.3); MPV 10.4 FL (7.4-10.4); NEUT% 56.8 % (42.2-75.2); PLT 228 X1000 (130-400)
[2016-03-28] MEDS: HUMULIN R SUBQ SCH ×2 (07:24→11:54)
[2016-03-28 07:31] LABS: AGAP 10; BUN 16 mg/dL (8-22); CALCIUM 8.8 mg/dL (8.8-10.2); CHLORIDE 101 mmol/L (98-107); COSMO 279; POTASSIUM 3.3 mmol/L (3.5-5.1); SODIUM 139 mmol/L (136-145); TCO2 28 mmol/L (25-35)
[2016-03-28] MEDS ORDERED: KLOR-CON PO ONE (08:20)
[2016-03-28 08:29] VITALS: BP 167/80
[2016-03-28] MEDS: PROTONIX IV SCH (09:30)
[2016-03-28] MEDS: SODIUM CHLORIDE 0.9% INJ SCH (09:30)
[2016-03-28] MEDS: LOVENOX SUBQ SCH (09:30)
[2016-03-28] MEDS: LANTUS SUBQ SCH (09:31)
[2016-03-28] MEDS: ASPIRIN PO SCH (09:31)
[2016-03-28] MEDS: PRINIVIL PO SCH (09:31)
[2016-03-28] MEDS: GLUCOPHAGE PO SCH (09:31)
--- NOTE | 2016-03-28 11:00 | DISCHARGE SUMMARY ---
This is an Addendum. Please see below for changes. ADMISSION DATE: 03/22/2016 DISCHARGE DATE: 03/28/2016 CONSULTATIONS: Dr. Ulises Holman with neurology. PERTINENT PROCEDURES: 1. Head CT was negative. 2. Brain MRI showed an acute left paramedian pontine infarction. 3. Brain MRA was normal. 4. Neck MRA was negative. DISCHARGE DIAGNOSES: 1. 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 Patient will be going to [facility]. 2. Hypertension. 3. Diabetes mellitus type 2. 4. Deconditioning, patient to [facility]. HOSPITAL COURSE: Mr. Asif Varner is a 70-year-old, male with a history of type 2 diabetes and hypertension but does not take medications for them because he is unable to afford them. He also states he has chronic hand and feet numbness. For the last 2-3 months, he has been using a walker as his gait has turned into a shuffling gait. Prior to that, he was walking. He has not sought medical attention for that. The night before admission around 10 p.m. at night, he and his went to bed. He states he was normal at that time. When he woke up at 5 a.m., he had to use the restroom and was found to be unable to move his right arm or leg, and that his speech was slurred. He was brought to the ED. Workup in the ED with a head CT was negative. Brain MRI did show an acute left paramedian pontine infarction. The patient did have right facial droop, dysarthria, tongue deviates to the right, complete hemiparesis of the right upper and lower extremity, and dysarthria. He also has difficulty swallowing. Also complained of excessive thirst and urination. The patient did have an elevated blood glucose at 296, anion gap of 60. Urine ketones were 60 and glucose was greater than 1000 in the urine. He did receive chewable aspirin in the ED and a 1 time dose of IV labetalol. His hypertensives were held for permissive hypertension. Patient continued with a full stroke workup including MRI, MRA of the brain and neck, along with an echocardiogram. Cardiology was consulted. Hemoglobin A1c was 12. The patient was made n.p.o. until evaluated. Dr. Holman agreed with aspirin and DVT prophylaxis. He did suggest to be very conservative with blood pressure management, particularly in light of presumed tolerance for higher blood pressures and that he would plan to bring blood pressure under better control gradually at a later time and continue with statin and aggressive blood sugar control. The patient was evaluated by PT. He has been working with PT. He has qualified for [facility]. The patient has had no new neurological symptoms since pending placement. He does have a place today at [facility]. Discharge vital signs at this time, temperature 97.8 degrees, heart rate 73, respirations 16, blood pressure 167/80, O2 is 97% on room air. DISCHARGE DIET: Diabetic. DISCHARGE MEDICATIONS: 1. Ambien 5 mg p.o. at bedtime p.r.n. 2. Aspirin 325 mg p.o. daily. 3. Glucophage 250 mg p.o. b.i.d. 4. Lantus 30 units subcutaneous q.a.m. 5. Lipitor 40 mg p.o. at bedtime. 6. Prinivil 20 mg p.o. daily. FOLLOWUP: The patient is being discharged to [facility]. He will need to follow up with a primary care physician after rehabilitation and Dr. Holman as needed. Patient will return to the ED for any worsening of symptoms. DISCHARGE TIME: 30 minutes. Dictated by CELIA Fraser for Toño Flores MD ADDENDUM #1 (Dictated: 03/28/2016 @ 09:48:45) ADMISSION DATE: 03/22/2016 DISCHARGE DATE: 03/28/2016 ADDENDUM REPORT On further speaking with the patient, states [facility] He has been approved for a bed at [facility]. The patient will be discharged to [facility]. Dictated by CELIA Fraser for Toño Flores MD
--- NOTE | 2016-03-28 11:40 | PROGRESS NOTE ---
DATE: 03/28/2016 SUBJECTIVE: Mr. Varner is seated. Awake, alert, attentive. He remembers seeing me several days ago. OBJECTIVE: On exam, he continues with right hemiplegia. He has good proprioception at the right index finger. He reports good sensation on gross light touch testing over the hands. He has full visual hoffman tested grossly by confrontational finger counting. Speech is improved. There is no language deficit on brief bedside testing. ASSESSMENT/PLAN: I encouraged him to try to be patient and to be optimistic and to work hard with therapy. I agree with plans for discharge. I will be glad to see Mr. Varner again at any time. [facility]
[2016-03-28] MEDS ORDERED: LIPITOR PO SCH (21:00)
== END 2016-03-28 13:17 | DRG 64 ==
LOC: EDBD → ED 06:15 → EDIPHOLD 11:15 → ICU 15:12 → 3N 03-25 13:46
PROVIDERS: ATTEND Internal Medicine
DX: I63.9 Cerebral infarction, unspecified (principal); E11.00 Type 2 diabetes mellitus with hyperosmolarity without nonketotic hyperglycemic-hyperosmolar coma (NKHHC); E11.42 Type 2 diabetes mellitus with diabetic polyneuropathy; E46 Unspecified protein-calorie malnutrition; G81.91 Hemiplegia, unspecified affecting right dominant side; Z68.1 Body mass index [BMI] 19.9 or less, adult; I10 Essential (primary) hypertension; R47.1 Dysarthria and anarthria; R29.810 Facial weakness; R13.10 Dysphagia, unspecified; E78.5 Hyperlipidemia, unspecified; G72.9 Myopathy, unspecified; E87.6 Hypokalemia; Z82.3 Family history of stroke; Z91.14 Patient's other noncompliance with medication regimen
CPT/HCPCS: 36415; 70450; 70544; 70548; 70553; 71010; 80048; 80053; 80061; 81001; 82948; 83036; 83735; 84443; 84484; 85025; 85610; 85730; 92523; 93306; 94761; 96365; 96366; 96375; A9579; C9113; G0480; J0360; J1650; J3480; J7040; 92610-GN; 97110-GP; 97140-GO; 97530-GP; S0164

== ENCOUNTER 2016-11-30 14:03 | Inpatient (IN) ==
[2016-11-30] MEDS ORDERED: NS 1,000 ML IV ONE (14:12)
[2016-11-30 14:24] LABS: MANUAL DIFF NEEDED? NO
[2016-11-30 14:28] LABS: BASO% 0.2 % (0.0-0.8); EOS# 0.16 X1000 (0.0-0.7); HEMATOCRIT 33.5 % (42.0-52.0); HEMOGLOBIN 11.6 g/dL (14.0-18.0); LYMPH# 0.83 X1000 (1.2-3.4); LYMPH% 10.3 % (20.5-51.1); MCH 32.2 PG (27-31); MCHC 34.6 g/dL (33-37); MCV 93.1 FL (81-99); MONO% 12.4 % (1.7-9.3); MPV 10.1 FL (7.4-10.4); NEUT% 75.1 % (42.2-75.2); PLT 277 X1000 (130-400)
[2016-11-30 15:00] LABS: ALBUMIN 3.4 g/dL (3.5-5.0); CALCIUM 9.1 mg/dL (8.8-10.2); MAGNESIUM 1.7 mg/dL (1.5-2.7); POTASSIUM 2.2 mmol/L (3.5-5.1); TOTAL BILIRUBIN 0.19 mg/dL (0.20-1.00); TOTAL PROTEIN 7.2 g/dL (6.3-8.3)
[2016-11-30] MEDS ORDERED: KLOR-CON PO ONE (15:01)
[2016-11-30] MEDS ORDERED: NS + KCL 40 MEQ 1,000 ML IV SCH (15:02)
--- NOTE | 2016-11-30 16:57 | Diag Imaging Result Doc PS360 ---
EXAM: CT ABD/PELVIS/PULM ARTERIES HISTORY: Abd pain/CP TECHNIQUE: CT pulmonary arteriogram with 3-D MIPS, CT of the abdomen and pelvis with intravenous contrast and dose reduction protocol applied. COMMENT: There are no filling defects in the pulmonary arteries. The thoracic aorta is normal in caliber and there is no evidence of dissection. There are some coronary calcifications. There are patchy opacities in the lingula and left lower lobe and to a lesser extent the right lower lobe consistent with mild bronchopneumonia. There are no previous studies. There are spondylotic changes in the thoracic spine. ABDOMEN: There are no previous studies. There is no evidence of abdominal aortic aneurysm. There is atherosclerotic calcification in the aorta. The renal and mesenteric arteries appear to be patent. There is dense calcification in the inferior mesenteric artery. There is bilateral hydronephrosis. The gallbladder is somewhat distended but there is no evidence of wall thickening or stones. The pancreas is unremarkable. The spleen and adrenal glands are within normal limits. There is no evidence of bowel obstruction. There is a fair amount of stool throughout the colon. No significant adenopathy is present. Pelvis: The urinary bladder is markedly distended. There is a large amount of stool in the rectum. There is soft tissue edema particularly in the subcutaneous fat over the lateral upper thighs and flanks. There is a mottled appearance to the cortex of the visualized skeleton and the possibility of secondary hyperparathyroidism cannot be excluded. There is extensive arteriosclerosis. No acute bony abnormalities are present. IMPRESSION: 1. Bronchopneumonia. 2. Obstructive uropathy presumably due to bladder outlet obstruction or urinary retention. 3. Constipation and fecal impaction. 4. Anasarca. Electronically signed by Irving Kaur 11/30/2016 4:55 PM
[2016-11-30] MEDS ORDERED: LEVAQUIN 750 MG/D5W 750 MG/150 ML IVPB IV ONE (17:09)
[2016-11-30] MEDS ORDERED: DULCOLAX PR ONE (17:11)
--- NOTE | 2016-11-30 17:19 | PROVIDER DOCUMENTATION ---
This chart was entered by Yue Ryan Scribe, acting as scribe for Higinio Slater MD. HPI-General Adult - General Chief Complaint: Abnormal Lab[s] Stated Complaint: potassium low Time Seen by Provider: 11/30/16 14:12 Source: patient Allergies/Adverse Reactions: Patient Allergies Allergy/AdvReac Type Severity Reaction Status Date / Time No Known Allergies Allergy Verified 03/22/16 06:46 Home Medications: Home Medication List Medication Instructions Recorded Confirmed Last Taken Type ATORVAstatin [Lipitor] 40 mg PO QHS #90 tablet 03/28/16 11/30/16 11/29/16 21:00 Rx 40 MG Insulin Glargine [Lantus] 35 unit SUBQ QAM 11/30/16 11/30/16 11/30/16 07:00 History 35 UNIT LISINOpril [Prinivil] 10 mg PO DAILY 11/30/16 11/30/16 11/30/16 07:00 History 10 MG Metformin [Glucophage] 500 mg PO DAILY 11/30/16 11/30/16 11/30/16 07:00 History 500 MG - History of Present Illness -Gen Adult Nature of Presenting Problems: 71 yo M presents to ED from PCP's office with cc of low potassium and a new bulging R periumbilical mass appearing 2 days ago. Mass is hard and nontender. Pt has been treated orally for low potassium by Dr. Madrigal. Pt also notes firm, nontender nodule to the L subclavicular area. Pt denies fever, chills, n/v. Upon arrival to ED, pt is afebrile and in no apparent distress. Location of Pain/Injury: reports: none Pain Radiation: reports: no radiation Quality of Pain: reports: none Severity: reports: moderate Onset/Duration: reports: abrupt, 2 days ago Timing: reports: still present Context/Activities at Onset: reports: none Modifying Factors: improves with: nothing Associated Symptoms: denies: fever/chills, nausea, vomiting Similar Symptoms Previously?: No Recently seen or treated by another doctor?: Yes (Dr. Madrigal, PCP, treating for hypokalemia) Review of Systems - Adult - REVIEW OF SYSTEMS - ADULT Constitutional: reports: no symptoms reported. denies: chills, fever Eyes: reports: no symptoms reported. denies: discharge, dry eyes Ears, Nose, Mouth & Throat: reports: no symptoms reported. denies: nose pain, throat pain Cardiovascular: reports: no symptoms reported. denies: chest pain, palpitations Respiratory: reports: no symptoms reported. denies: cough, shortness of breath Gastrointestinal: reports: other (Mass to R periumbilical). denies: abdominal pain, nausea, vomiting Genitourinary: reports: no symptoms reported. denies: dysuria, flank pain Musculoskeletal: reports: other (nodule to L subclavicular region) Integumentary: reports: no symptoms reported. denies: hives, rash Neurological: reports: no symptoms reported. denies: dizziness/vertigo, headache/migraines Psychiatric: reports: no symptoms reported. denies: anxiety, depression Endocrine: reports: no symptoms reported. denies: cold intolerance, heat intolerance Hematologic/Lymphatic: reports: no symptoms reported. denies: blood clots, lymphedema Allergic/Immunologic: reports: no symptoms reported. denies: allergic reactions , frequent infections All Other Systems: Reviewed and Negative Past History - Adult - PAST MEDICAL HISTORY-ADULT Review of Records: reports: Old Records Reviewed, Nursing Assessment Review, Medications Reviewed Psychiatric: reports: denies history Endocrine/Immune: reports: Diabetes - PRIOR SURGERIES/PROCEDURES Surgical/Procedure History: reports: none - IMMUNIZATION STATUS Childhood Immunizations: See Nurse Assessment Flu Vaccine: See Nurse Assessment Physical Exam-General - PHYSICAL EXAM-ADULT Initial Vital Signs Reviewed: Yes - CONSTITUTIONAL General Appearance: appears well, alert, no apparent distress - EYES Eyes: PERRL/EOMI, pink conjunctivae - HEAD, EARS, NOSE, MOUTH & THROAT HENMT: normocephalic/atraumatic, moist mucous membranes - NECK Neck: non-tender, full range of motion, supple - RESPIRATORY Respiratory: chest non-tender, lungs clear, normal breath sounds - CARDIOVASCULAR Cardiovascular: normal peripheral pulses, regular rate, rhythm, no edema - GASTROINTESTINAL (ABDOMEN) Abdominal Exam: normal bowel sounds, non tender, soft, other (R periumbilical mass, firm and nontender) - LYMPHATIC Lymphatic: no adenopathy - MUSCULOSKELETAL Back Exam: normal inspection Extremity: normal range of motion, non-tender (L side), normal gait (L side), other (Pt has R-side paralysis from stroke 04/03.) - SKIN Integumentary: normal color, normal turgor, warm/dry, other (Firm, nontender nodule to L subclavicular area) - NEUROLOGIC Neurologic: grossly normal (L side), no motor/sensory deficits (L side), other ( R side paralysis from stroke 04/03; no new changes.) - PSYCHIATRIC Psych/Mental Status: normal mood/affect, normal thought content, normal thought process, oriented x 3 Progress - PLAN OF CARE/RESULTS Progress/Plan/Lab Results: Vital Signs - 8 hr 11/30/16 14:21 Temperature 97.7 F Pulse Rate 64 Respiratory Rate 18 Blood Pressure 179/84 O2 Sat by Pulse Oximetry 96 Laboratory Results - last 24 hr 11/30/16 14:13 WBC 8.04 RBC 3.60 L Hgb 11.6 L Hct 33.5 L MCV 93.1 MCH 32.2 H MCHC 34.6 RDW Std Deviation 13.5 Plt Count 277 MPV 10.1 Neut % (Auto) 75.1 Lymph % (Auto) 10.3 L [place] % (Auto) 12.4 H Eos % (Auto) 2.0 Baso % (Auto) 0.2 Neut # (Auto) 6.03 Lymph # (Auto) 0.83 L [place] # (Auto) 1.00 H Eos # (Auto) 0.16 Baso # (Auto) 0.02 Orders Category Date Time Status Saline Loc DIRECTED Care 11/30/16 14:12 Active NPO Diet 11/30/16 14:[address] ABD/PELVIS/PULM ARTERIES [CT] Stat Exams 11/30/16 14:12 Ordered AMYLASE [CHEM] Stat Lab 11/30/16 14:13 Received CBC WITH ELECTRONIC DIFF [HEME] Stat Lab 11/30/16 14:13 Completed COMPREHENSIVE METABOLIC PANEL [CHEM] Stat Lab 11/30/16 14:13 Received LIPASE [CHEM] Stat Lab 11/30/16 14:13 Received MAGNESIUM [CHEM] Stat Lab 11/30/16 14:13 Received TROPONIN T Stat Lab 11/30/16 14:13 Received URINALYSIS W/POSS RFLX CULT-1 [URINALYSIS] Stat Lab 11/30/16 14:12 Uncollected 0.9% Sodium Chloride Inj [Ns] 1,000 ml Med 11/30/16 14:12 Active IV 999 mls/hr Result Diagrams: 11/30/16 14:13 11/30/16 14:13 - CONSULTS/PCP/HOSPITALIST Notification #1 *Consult/PCP/Hospitalist*: Dr. Bernardo/Tenisha Time Discussed: 17:17 Consult Disposition: Will see in ED, Admit Departure - Departure Date of Disposition Decision: 11/30/16 Time of Disposition Decision: 17:17 DIAGNOSIS: Urinary retention, Bilateral pneumonia, Hypokalemia Disposition: ADMITTED INPATIENT 09 Certified Medical Emergency: Emergent Condition: Stable - Critical Care Note This patient required my direct & personal management of CC.: No Attestation - Physician/ JERONIMO Attestation Patient care was provided by Advanced Practice Provider:: No The physician spent face to face time with patient:: Yes Advanced Practice Provider documentation review:: Supervising physician onsite and consulted in the evaluation and care of this patient. The physician did have a face to face encounter with the patient. This chart was documented by the indicated scribe, (Yue Ryan Scribe) and accurately reflects the services I performed and decisions made by me, Higinio Slater MD, as attested by the provider's signature.
[2016-11-30 17:33] LABS: URINE CULTURE NEEDED? NO; URINE MICRO REVIEW NEEDED? NO; URINE SOURCE CLEAN CATCH
[2016-11-30 17:43] LABS: BILIRUBIN URINE NEGATIVE (NEGATIVE); BLOOD URINE SMALL (NEGATIVE); COLOR YELLOW; GLUCOSE URINE NEGATIVE (NEGATIVE); LEUKOCYTES URINE NEGATIVE (NEGATIVE); NITRITE URINE NEGATIVE (NEGATIVE); PROTEIN URINE TRACE mg/dL (NEGATIVE); TURBIDITY URINE CLEAR (CLEAR); UROBILINOGEN URINE NORMAL (NORMAL)
[2016-11-30 17:44] LABS: UR EPITHELIAL CELLS <10 /HPF (<10); URINE BACTERIA NEGATIVE /HPF; URINE WBC <10 /HPF (<10)
--- NOTE | 2016-11-30 18:47 | HISTORY AND PHYSICAL ---
HISTORY OF PRESENT ILLNESS: A 71-year-old who he felt a lump in his tummy, was concerned about it, his primary care physician was concerned about his low potassium. Turned out to be a distended bladder. He had a Antoine catheter placed. He states he has not felt really good since March when he had a stroke, I think it was March 22. He was getting ready go to bed and all of a sudden he felt his right side get weak and he stated they called EMS and before he got on the stretcher he had complete weakness in his right arm and right leg and that really has not returned, had a CVA. He has history of diabetes mellitus type 2, hypertension. 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 He had a shuffling gait even before his CVA. And he does have a history of dyslipidemia. Surgical history: None. He lives at home. He is not able to stand. He had some assistance from his to get into wheelchair. He denies fever but he states he stays cold all the time. He denies gross hematuria or dysuria. Denies change in his bowels although he feels like he needs to go more but in his report he has bowel movement just about every day. He feels a little bit bloated and distended. He did have some right facial droop which has resolved. At this time it was deviating to the right which is resolved as well. No real speech deficits. I am not sure how well his sugars have been controlled. 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 He has 2 grown children. Denies alcohol or tobacco or drug use. FAMILY HISTORY: Father had a CVA. No other pertinent family history obtained. ALLERGIES: No known drug allergies. REVIEW OF SYSTEMS: General: No weight gain or loss. No fever or chills. HEENT: Unremarkable. Respiratory: No increased work of breathing or dyspnea. Cardiovascular: No chest pain or tachy palpitation. GI: Unremarkable. : Unremarkable. Musculoskeletal/Neurologic: No complaints except for this lump in his belly. Skin: No complaints of rash. HEENT: No visual change or change in hearing acuity. Musculoskeletal: No neck pain or new focal areas of pain. He has good sensation in his right thigh but he has really no strength in the right arm or right leg. PHYSICAL EXAMINATION: VITAL SIGNS: In the emergency room, temperature 97.7 degrees, pulse 64, respirations 18, blood pressure 179/84. HEENT: Pupils are equal and round. CVP less than 6 cm. LUNGS: Clear in all lung hoffman anterior, lateral and posterior. CARDIOVASCULAR: Regular rhythm and rate without murmur or S3. ABDOMEN: Soft. SKIN: Warm and dry. : He has a Antoine catheter in place at this time. Weight 170 pounds, height 5 feet 10 inches. Urine output 1200 mL. LAB: White count 8040, hematocrit 33, platelet count 277,000. Sodium 146, potassium 2.2, chloride 106, bicarb 22, BUN 40, creatinine 1.0. Urinalysis unremarkable. IMAGIN. Abdominal and pelvic CT: Found some bronchopneumonia. Thoracic aorta is normal caliber, no evidence of dissection. There are coronary calcifications, patchy opacities in the lingula and left lower lobe, lesser extent in the right lower lobe consistent with bronchopneumonia. No previous studies to compare. 2. Abdomen: There was obstructive uropathy presumably due to bladder outlet obstruction and urinary retention. 3. Constipation and fecal impaction and anasarca. MEDICATIONS: Reviewed his medications at home. He is on Lipitor 40 mg at bedtime, Lantus 30 units q.a.m., Prinivil 10 mg a day, Glucophage 500 mg daily. ASSESSMENT AND PLAN: 1. Urinary outlet obstruction. Suspect benign prostatic hypertrophy but he also has constipation. I will work on his constipation. I asked Dr. Ogden to evaluate. I will put him on some Flomax 0.4 twice a day and we will see what Urology advises. I do not see evidence of urinary tract infection at this time. 2. Constipation. We will work on that. 3. Status post cerebrovascular accident with right-sided motor deficit, left-sided cerebrovascular accident. 4. Hypertension. We will follow his blood pressures, they seem a little bit high right now but will see what the trend is. 5. History of hyperlipidemia. 6. Diabetes mellitus type 2. We will check pattern sugars. He is hungry so I will get him a diabetic tray now. 7. Hypokalemia, hypomagnesemia. We will supplement this. I was looking back at an echocardiogram. Here is an echocardiogram that was done in March of this year and he has right atrium mildly enlarged at 4.8 cm, mild tricuspid regurgitation, normal RV size and systolic function, mild pulmonic insufficiency, mild left atrial enlargement 4.7 cm. Normal LV function, dimension 3.5, normal to hyperdynamic LV function, ejection fraction 70%. Aortic valve unremarkable, no evidence of stenosis or insufficiency. Aorta appears to be normal visualized pattern. cc: Dave Bernardo MD
[2016-11-30] MEDS ORDERED: LIPITOR PO SCH (21:31)
[2016-11-30] MEDS: NS + KCL 40 MEQ 1,000 ML IV SCH (22:11)
[2016-11-30] MEDS: MAG-OX PO SCH (22:15)
[2016-11-30] MEDS: FLOMAX PO SCH (22:15)
[2016-11-30] MEDS: TYLENOL PO PRN (22:15)
[2016-11-30] MEDS: KLOR-CON PO SCH (22:15)
[2016-12-01] MEDS ORDERED: NS 500 ML ONE (01:00)
[2016-12-01] MEDS: NS + KCL 40 MEQ 1,000 ML IV SCH ×4 (04:12→21:10)
[2016-12-01 06:59] LABS: MANUAL DIFF NEEDED? NO
[2016-12-01 07:06] LABS: BASO% 0.1 % (0.0-0.8); EOS# 0.05 X1000 (0.0-0.7); EOS% 0.5 % (0.0-10.0); HEMATOCRIT 33.1 % (42.0-52.0); HEMOGLOBIN 11.5 g/dL (14.0-18.0); IMM GRAN# 0.04 X1000 (0.0-0.04); IMM GRAN% 0.4 % (0.0-0.5); LYMPH# 0.72 X1000 (1.2-3.4); LYMPH% 7.5 % (20.5-51.1); MCH 31.6 PG (27-31); MCHC 34.7 g/dL (33-37); MCV 90.9 FL (81-99); MONO# 0.82 X1000 (0.11-0.59); MONO% 8.6 % (1.7-9.3); MPV 10.3 FL (7.4-10.4); NEUT% 82.9 % (42.2-75.2); PLT 286 X1000 (130-400); RBC 3.64 XMIL (4.7-6.1)
[2016-12-01 07:38] LABS: AGAP 13; BUN 29 mg/dL (8-22); CALCIUM 8.8 mg/dL (8.8-10.2); CHLORIDE 113 mmol/L (98-107); COSMO 306; MAGNESIUM 1.4 mg/dL (1.5-2.7); POTASSIUM 3.7 mmol/L (3.5-5.1); SODIUM 150 mmol/L (136-145); TCO2 24 mmol/L (25-35)
[2016-12-01] MEDS ORDERED: INSULIN PEN NEEDLES ONE (07:41)
[2016-12-01] MEDS: MAG-OX PO SCH ×2 (10:26→21:13)
[2016-12-01] MEDS: FLOMAX PO SCH ×2 (10:26→21:14)
[2016-12-01] MEDS: PRILOSEC PO SCH (10:26)
[2016-12-01] MEDS: KLOR-CON PO SCH ×2 (10:26→21:13)
[2016-12-01] MEDS: GLUCOPHAGE PO SCH (10:26)
[2016-12-01] MEDS: PRINIVIL PO SCH (10:27)
[2016-12-01] MEDS: LIPITOR PO SCH (10:27)
[2016-12-01] MEDS: LANTUS SUBQ SCH (10:27)
[2016-12-01] MEDS ORDERED: DULCOLAX PR PRN (11:39)
[2016-12-01] MEDS: LACTULOSE PO SCH ×2 (12:12→21:13)
[2016-12-01] MEDS: COLACE PO SCH ×2 (12:12→21:13)
[2016-12-01] MEDS: CATAPRES PO PRN (12:34)
--- NOTE | 2016-12-01 12:44 | PROGRESS NOTE ---
DATE: 12/01/2016 SUBJECTIVE: He is feeling a little better, but he is uncomfortable because of the constipation. We have given him some Dulcolax suppositories but they have, so far, not produced any results, so he would like us to try and give him something from above. In his words, the "lump" in his belly has resolved with the Antoine catheter. OBJECTIVE: Vital Signs: Temperature 98.3 degrees, pulse 85, respirations 17, blood pressure 180/68. HEENT: Pupils are equal and round. CVP less than 6 cm. Lungs are clear in all lung hoffman. Cardiovascular: Regular rhythm and rate without murmur or S3. Abdomen is soft. Skin is warm and dry. Antoine catheter in place. Urine output. He has had a prior 1100 mL out. Lab reviewed from yesterday, white count 9590, hematocrit 33, platelet count 286,000. Sodium was 150, potassium 3.7, chloride 113. BUN 29, creatinine 0.9. ASSESSMENT AND PLAN: 1. Swollen area in his abdomen. He came to the emergency room and found to be distended bladder but also he has significant constipation. Antoine catheter placed. Will ask Urology to see. Suspect benign prostatic hypertrophy. I did start him on some Flomax. We will start to give him some cathartics from above and see if we can clean him out a little better. 2. Constipation as above. 3. 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 4. Hypertension. Watch his blood pressure. 5. Hyperlipidemia. 6. Diabetes mellitus, type 2. Continue pattern sugars. 7. Hypokalemia which we supplemented. His potassium is up to 3.7. His sodium is a little bit on the higher side too. I am going to change him to 1/2 normal saline continue at 150 mL an hour. He is on levofloxacin. I will continue that, 750 mg IV daily, and we will put him on some Colace and some lactulose and see if we can get his bowels to move. cc: Dave Bernardo MD
[2016-12-01] MEDS ORDERED: CALMOSEPTINE OINTMENT TOP PRN (15:49)
--- NOTE | 2016-12-01 22:09 | CONSULTATION ---
DATE OF CONSULTATION: 12/01/2016 CONSULTATION FOR: Urinary retention, hydronephrosis. HISTORY OF PRESENT ILLNESS: A 71-year-old male without previous urologic history with the exception to 1 urinary tract infection in the last 8 months. He presented to his family doctor secondary to abdominal discomfort and swelling. He was told that his potassium levels were dangerously low and was admitted to the hospital. In the process he underwent evaluation with CT of abdomen and pelvis which revealed severely distended urinary bladder, significant amount of stool in the rectum and bilateral hydroureteronephrosis. He reports nocturia x2 as well as occasional urgency. He denies weak stream, urinary incontinence or recurrent UTIs. He denies gross hematuria or flank pain. He reports that when he was living in [place] he was told to see urologist and had an appointment but had not had a chance to do so. He has never been on medications. He has never had digital rectal examination. PAST MEDICAL HISTORY: Cerebrovascular accident, hypertension, diabetes mellitus with neuropathy. PAST SURGICAL HISTORY: None. ALLERGIES: No known drug allergies. HOME MEDICATIONS: No medications. Please see electronic medical records. FAMILY HISTORY: No malignancies. SOCIAL HISTORY: Denies tobacco, alcohol, drug use. REVIEW OF SYSTEMS: Reviewed and 12 systems negative except the HPI. PHYSICAL EXAMINATION: T 98 degrees, P 78, BP 189/71.General: No acute distress. HEENT: Normocephalic, atraumatic. Cardiovascular: Regular rhythm. Pulmonary: Bilateral breath sounds. Abdomen: Nontender, nondistended. Back: No CVA tenderness. : Normal phallus. Normal meatus. Antoine catheter in place draining straw-colored urine, testes descended bilaterally atrophic. Digital rectal examination was deferred because prior to me attempt at exam the patient had a very large BM and soiled his entire buttocks and the sheets. Dermatologic: He has got diaper rash in bilateral groins as well as along the penile shaft. Neurologic: Alert , oriented x3. Psychiatric: Appropriate mood and affect. PERTINENT LABORATORY DATA: White cell count of 10,000, creatinine is 0.9. CT abdomen and pelvis on 11/30/2016 revealing findings per HPI. ASSESSMENT: A 71-year-old male with urinary retention, bilateral hydronephrosis due to benign prostatic hypertrophy. Again I was not able to examine the patient this time but after he is cleaned will do so. I have discussed with the patient the injury of urine retention especially its potential for damage to the upper genitourinary tract. We discussed that he will definitely need Antoine catheter for 7-10 days and Flomax prior to considering voiding trial. He voiced understanding. PLAN: 1. Agree with Antoine catheter gravity drainage for now. 2. Agree with Flomax 0.4 mg twice a day. 3. Will follow. Thank you for the consultation. cc: Nima Ogden MD MTDD
[2016-12-02] MEDS: NS + KCL 40 MEQ 1,000 ML IV SCH ×4 (04:19→20:42)
[2016-12-02] MEDS: KLOR-CON PO SCH ×2 (08:43→20:43)
[2016-12-02] MEDS: LACTULOSE PO SCH ×2 (08:43→20:43)
[2016-12-02] MEDS: PRILOSEC PO SCH (08:43)
[2016-12-02] MEDS: GLUCOPHAGE PO SCH (08:43)
[2016-12-02] MEDS: LIPITOR PO SCH (08:43)
[2016-12-02] MEDS: FLOMAX PO SCH ×2 (08:43→20:43)
[2016-12-02] MEDS: COLACE PO SCH ×2 (08:43→20:43)
[2016-12-02] MEDS: PRINIVIL PO SCH (08:44)
[2016-12-02] MEDS: MAG-OX PO SCH ×2 (08:44→20:43)
[2016-12-02] MEDS: LANTUS SUBQ SCH (08:44)
--- NOTE | 2016-12-02 10:30 | PROGRESS NOTE ---
DATE: 12/02/2016 SUBJECTIVE: Mr. Varner is feeling better. He had extensive bowel movement and so feels much more comfortable. He has remained afebrile. He denied any pain at this point. PHYSICAL EXAMINATION: Vital Signs: Temperature 98.1 degrees, pulse 67, respirations 16, blood pressure 183/87. HEENT: His pupils were equal and round. Neck: No distended neck veins. Neck is supple. Lymphatics: I did not appreciate any cervical or supraclavicular adenopathy. Respiratory: Lungs are clear in all lung hoffman. Cardiovascular Examination: Regular rhythm and rate without murmur or S3. Abdomen: Soft. Skin: Is warm and dry. Is and Os: Urine output looks like it is over 6 L. LABORATORY DATA: White count 9590, hematocrit 33, platelet count 286,000. Blood sugars have been sequentially 130, 103, 50, and 89. I appreciate Dr. Ogden's help. ASSESSMENT AND PLAN: 1. A 74-year-old with urinary retention, bilateral hydronephrosis due to benign prostatic hypertrophy. We have him on some Flomax. He will need a Antoine catheter for 7-10 days. 2. Constipation. Continue cathartics. He is making good progress on that. 3. Status post cerebrovascular accident with right-sided motor paresis. 4. Hypertension. Continue to watch blood pressure. 5. Hyperlipidemia. 6. Diabetes mellitus type 2. Looks like we need to back down on his insulin. I am going to cut the Lantus down. He is on metformin 500 mg daily and I will cut the Lantus down to 25. We will see how his sugars do. Today, we may leave it there for this morning and see how we do eating. 7. Continue his fluids with 40 mEq of KCl, normal saline 150 mL an hour. cc: Dave Bernardo MD
[2016-12-02] MEDS: CATAPRES PO PRN ×2 (14:58→21:25)
--- NOTE | 2016-12-02 17:08 | PROGRESS NOTE ---
DATE: 12/02/2016 SUBJECTIVE: Mr. Varner reports a good night overnight. He denies abdominal discomfort. He denies discomfort from Antoine catheter. OBJECTIVE: Vital Signs: T 98.1 degrees, P 68, BP 201/85. His urine output was 5700 mL. General: No acute distress. Abdomen: Nontender, nondistended. Genitourinary: Antoine catheter draining straw-colored urine. rectal: Digital rectal examination deferred at this time again, secondary to another large bowel movement and the patient being completely soiled. PERTINENT LABORATORIES: None today. ASSESSMENT: A 71-year-old male with urinary retention, with resultant bilateral hydronephrosis. PLAN: 1. Keep Antoine catheter for another week or so. 2. I will order a renal ultrasound tomorrow to document resolution of hydronephrosis. 3. Agree with Flomax for now. 4. Will follow. cc: Nima Ogden MD
[2016-12-03] MEDS: NS + KCL 40 MEQ 1,000 ML IV SCH ×4 (03:10→21:38)
[2016-12-03] MEDS: PRILOSEC PO SCH (08:12)
[2016-12-03] MEDS: COLACE PO SCH ×2 (08:12→20:10)
[2016-12-03] MEDS: LIPITOR PO SCH (08:13)
[2016-12-03] MEDS: KLOR-CON PO SCH ×2 (08:13→20:10)
[2016-12-03] MEDS: FLOMAX PO SCH ×2 (08:13→20:10)
[2016-12-03] MEDS: LANTUS SUBQ SCH (08:13)
[2016-12-03] MEDS: GLUCOPHAGE PO SCH (08:13)
[2016-12-03] MEDS: MAG-OX PO SCH ×2 (08:13→20:10)
[2016-12-03] MEDS: PRINIVIL PO SCH ×2 (08:13→20:11)
[2016-12-03] MEDS: LACTULOSE PO SCH ×2 (08:14→20:10)
[2016-12-03] MEDS: CATAPRES PO PRN (08:15)
[2016-12-03] MEDS: HUMULIN R SUBQ SCH ×3 (12:00→20:58)
--- NOTE | 2016-12-03 14:21 | PROGRESS NOTE ---
DATE: 12/03/2016 SUBJECTIVE: Mr. Varner has had quite a bit of stool. He is incontinent, so he really cannot tell, but it feels like he is less bloated. He has a Antoine catheter in. He had bladder retention with bilateral hydronephrosis. Dr. Ogden is following. OBJECTIVE: Vital signs: Temp 97.4 degrees, pulse 60, respirations 18, blood pressure 200/72. HEENT: Pupils are equal and round. Lungs: Clear in all lung hoffman. Cardiovascular: Regular rhythm and rate, without murmur or S3. Abdomen: Soft. Skin: Warm and dry. genitourinary: Urine output 3600 mL. I see urine output from yesterday was well over 6.5 L. LABORATORY: White count 9590, that is December 01. Hematocrit 33, platelet count 286,000. Blood sugars have been 204, 225, 233, 257. ASSESSMENT AND PLAN: 1. A 71-year-old with urinary retention and bilateral hydronephrosis. Plan to keep the Antoine in for a week or so. We will get a renal ultrasound and document resolution of hydronephrosis. 2. Constipation, which is improved. He is incontinent, so he cannot tell when he is having a bowel movement. 3. Continue his Flomax for now. REVIEW OF ORDERS.: I do not see any change at this point. I am going to check a flat and upright, or just check a KUB portable to see how we are doing. He will continue his fluids at 150 mL an hour. He has right-sided paresis from CVA. I had long discussion with his . Also diabetes mellitus. Sugars appeared controlled. Blood pressure appears to be doing well, although still running high blood pressures consistently above 170 systolic. We will probably add an GITA inhibitor, if able. cc: Dave Bernardo MD
--- NOTE | 2016-12-03 14:24 | Diag Imaging Result Doc PS360 ---
KUB ABDOMEN - 12/03/2016 INDICATION: constipation TECHNIQUE: COMPARISON: 11/30/2016 FINDINGS: There has been resolution of the rectal fecal impaction. There is however persistent constipation throughout the colon diffusely most notably at the a sending colon. No definite bowel obstruction or free air. The stomach remains somewhat distended with gas. IMPRESSION: Resolution of the rectal fecal impaction. Persistent constipation. Electronically signed by Pahceco Salgado 12/03/2016 2:22 PM
--- NOTE | 2016-12-03 15:56 | Diag Imaging Result Doc PS360 ---
EXAM: US RENAL 2 (RETROPER) COMPLETE HISTORY: hydronephrosis TECHNIQUE: COMPARISON: CT from 03/01/2017 FINDINGS: The right kidney measures 12.1 x 5.9 x 5.6 cm. Normal renal echotexture and cortical thickness. There is slight distention to the renal pelvis. No renal stone. There is a 2.3 cm cyst arising from the lower pole. The left kidney measures 15.4 x 6.3 x 6.8 cm. Normal cortical thickness. There is mild to moderate left-sided hydronephrosis. No renal stone. No renal mass. A Antoine catheter has the urinary bladder decompressed IMPRESSION: Mild to moderate left-sided hydronephrosis in addition to slight distention to the right renal pelvis. Electronically signed by Erik Cifuentes 12/03/2016 3:54 PM
[2016-12-04] MEDS: TYLENOL PO PRN (00:26)
[2016-12-04] MEDS: NS + KCL 40 MEQ 1,000 ML IV SCH ×2 (04:33→11:07)
[2016-12-04] MEDS: HUMULIN R SUBQ SCH ×2 (06:05→12:10)
[2016-12-04 07:36] LABS: AGAP 13; ALBUMIN 3.1 g/dL (3.5-5.0); ALKALINE PHOSPHATASE 91 U/L (32-122); BUN 14 mg/dL (8-22); CALCIUM 7.7 mg/dL (8.8-10.2); CHLORIDE 105 mmol/L (98-107); COSMO 297; GOT 12 U/L (10-34); GPT 10 U/L (10-44); MAGNESIUM 1.1 mg/dL (1.5-2.7); POTASSIUM 3.8 mmol/L (3.5-5.1); SODIUM 145 mmol/L (136-145); TCO2 27 mmol/L (25-35); TOTAL PROTEIN 5.7 g/dL (6.3-8.3)
[2016-12-04] MEDS: KLOR-CON PO SCH (09:35)
[2016-12-04] MEDS: MAG-OX PO SCH (09:35)
[2016-12-04] MEDS: PRINIVIL PO SCH (09:36)
[2016-12-04] MEDS: PRILOSEC PO SCH (09:37)
[2016-12-04] MEDS: FLOMAX PO SCH (09:37)
[2016-12-04] MEDS: GLUCOPHAGE PO SCH (09:37)
[2016-12-04] MEDS: COLACE PO SCH (09:37)
[2016-12-04] MEDS: LIPITOR PO SCH (09:37)
[2016-12-04] MEDS: LACTULOSE PO SCH (09:38)
[2016-12-04] MEDS: LANTUS SUBQ SCH (09:41)
[2016-12-04 15:17] VITALS: BP 159/64
[2016-12-05] MEDS ORDERED: NORVASC PO SCH (09:00)
[2016-12-05] MEDS ORDERED: ASPIRIN PO SCH (09:00)
[2016-12-05] MEDS ORDERED: HYGROTON PO SCH (09:00)
--- NOTE | 2016-12-05 09:29 | DISCHARGE SUMMARY ---
ADMISSION DATE: 11/30/2016 DISCHARGE DATE: 12/04/2016 CONSULTATION: Dr. Ogden with urology. PERTINENT PROCEDURES: 1. Abdomen and pelvis CT showed bronchopneumonia and obstructive uropathy presumably due to bladder outlet obstruction or urinary retention, constipation, fecal impaction and scar. 2. Abdominal x-ray showed resolution of the rectal fecal impaction, persistent constipation. 3. Renal ultrasound showed mild to moderate left-sided hydronephrosis in addition to slight distention to the right renal pelvis. DISCHARGE DIAGNOSES: 1. Urinary retention with bilateral hydronephrosis followed by Dr. Ogden. The patient will keep his Antoine catheter for another week or so. He will continue on Flomax. 2. Renal ultrasound on 12/03/2016 showed [id number] left-sided hydronephrosis in addition to slight distension to the right renal pelvis. He will follow up with Dr. Ogden on 12/14 at 8:40 a.m. 3. Constipation, improved. 4. Status post cerebrovascular accident with right-sided motor deficit, left- sided cerebrovascular accident, stable. 5. Hypertension. Continue blood pressure medications. 6. Hyperlipidemia history. Continue statin. 7. Diabetes mellitus. Continue home metformin and Lantus. 8. Hypokalemia, hypomagnesemia, resolved. HOSPITAL COURSE: Mr. 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 He presented to his PCP secondary to abdominal discomfort and swelling. He was told his potassium levels were dangerously low, so he came to the ED to be evaluated. On admission his potassium was 2.2. CT of the abdomen and pelvis revealed severely distended urinary bladder with significant amount of stool in the rectum and bilateral hydroureteronephrosis. He reports nocturia, as well as occasional urgency with extreme urinary incontinence, recurrent UTI's. Denies any gross hematuria or flank pain. He was initiated on Flomax. A Antoine catheter was inserted. He was started on a bowel regimen and his magnesium, as well as potassium were supplemented and watched closely. Initiated on levofloxacin. Dr. Ogden agreed with the Antoine catheter for drainage, as well as the Flomax, and to keep his Antoine catheter for a week or so. The follow up renal ultrasound on 12/03 showed [id number] left-sided hydronephrosis in addition to slight distension to the right renal pelvis. His constipation did improve. He does feel less bloated. He is being discharged home today at [facility] with his Antoine and to follow up with Dr. Ogden on 12/14/2016. VITAL SIGNS: At time of discharge, temperature is 98.1 degrees, heart rate 63, respirations 20, blood pressure is 196/65, O2 is 95% on room air. DISCHARGE DIET: Diabetic. DISCHARGE MEDICATIONS: As per Dr. Felix: 1. Norvasc 10 mg p.o. daily. 2. Aspirin 81 mg p.o. daily. 3. Lipitor 40 mg p.o. at bedtime. 4. Hygroton 12.5 mg p.o. daily. 5. Colace 200 mg p.o. b.i.d. 6. Lantus 35 units subcutaneous q.a.m. 7. Prinivil 10 mg p.o. daily. 8. Magnesium Oxide 800 mg p.o. b.i.d. 9. Glucophage 500 mg p.o. daily. 10. Prilosec 40 mg p.o. daily. 11. Klor-Con 40 mEq p.o. daily. 12. Flomax 0.4 mg p.o. b.i.d. FOLLOWUP: Mr. Varner is being discharged home with [facility], as well as his Antoine that he will keep until he follows up with Dr. Ogden on 12/14/2016 at 8:40 a.m. He is to take all medications as prescribed. He can return to the ED for any worsening of symptoms. Dictated by CELIA Fraser for Jimenez Felix MD cc: MD Jimenez Garcia MD Time spent for discharge was 33 minutes. MTDD
== END 2016-12-04 15:24 | disposition home health service (06) ==
LOC: ED 14:03 → SUATTDRO 20:50 → 3N 20:50
PROVIDERS: ATTEND Internal Medicine

== ENCOUNTER 2016-12-26 09:25 | Inpatient (IN) ==
[2016-12-26 09:50] LABS: URINE MICRO REVIEW NEEDED? NO; URINE SOURCE CATH
--- NOTE | 2016-12-26 09:54 | Diag Imaging Result Doc PS360 ---
CHEST-PORTABLE - 12/26/2016 INDICATION: AMS TECHNIQUE: COMPARISON: 03/22/2016 FINDINGS: The lungs are normally expanded and clear. Heart size and mediastinal contours are normal. No pneumothorax or pleural effusion. IMPRESSION: Negative exam. Electronically signed by Pacheco Salgado 12/26/2016 9:52 AM
[2016-12-26 09:56] LABS: ALLEN TEST NO; BE 3.5 mmoll (-3.0-3.0); BLOOD TYPE ARTERIAL; DRAW SITE R BRACHIAL; METHB 1.7 % (0.0-1.5); MODALITY ROOM AIR; O2(CT) 17.4 mL/dL (15.0-23.0); PCO2(98.6) 40 mmHg (35-45); PO2(98.6) 79 mmHg (60-100); SAMPLE BLOOD; THB 13.1 g/dL (11.5-17.4); pH(98.6) 7.45 (7.35-7.45)
[2016-12-26 09:56] LABS: BASO% 0.1 % (0.0-0.8); EOS# 0.01 X1000 (0.0-0.7); EOS% 0.1 % (0.0-10.0); HEMATOCRIT 39.8 % (42.0-52.0); HEMOGLOBIN 13.3 g/dL (14.0-18.0); IMM GRAN# 0.04 X1000 (0.0-0.04); IMM GRAN% 0.4 % (0.0-0.5); LYMPH# 0.73 X1000 (1.2-3.4); LYMPH% 7.9 % (20.5-51.1); MANUAL DIFF NEEDED? NO; MCH 31.3 PG (27-31); MCHC 33.4 g/dL (33-37); MCV 93.6 FL (81-99); MONO# 0.51 X1000 (0.11-0.59); MONO% 5.5 % (1.7-9.3); MPV 10.6 FL (7.4-10.4); PLT 274 X1000 (130-400); RBC 4.25 XMIL (4.7-6.1)
[2016-12-26 09:58] LABS: BILIRUBIN URINE NEGATIVE (NEGATIVE); BLOOD URINE SMALL (NEGATIVE); COLOR YELLOW; GLUCOSE URINE 150 mg/dL (NEGATIVE); LEUKOCYTES URINE LARGE (NEGATIVE); NITRITE URINE NEGATIVE (NEGATIVE); PROTEIN URINE TRACE mg/dL (NEGATIVE); SP GRAVITY URINE 1.017; TURBIDITY URINE HAZY (CLEAR); UR EPITHELIAL CELLS <10 /HPF (<10); URINE BACTERIA NEGATIVE /HPF; URINE CULTURE NEEDED? YES; URINE RBC <10 /HPF (<10); URINE WBC TNTC /HPF (<10); UROBILINOGEN URINE NORMAL (NORMAL)
[2016-12-26 10:07] LABS: INR 1.13; PTT 30.2 Seconds (22.0-36.0)
[2016-12-26 10:23] LABS: AGAP 15; ALBUMIN 3.4 g/dL (3.5-5.0); ALKALINE PHOSPHATASE 126 U/L (32-122); BUN 33 mg/dL (8-22); CHLORIDE 108 mmol/L (98-107); CK PROFILE 109 U/L (24-204); COSMO 307; GOT 15 U/L (10-34); GPT 11 U/L (10-44); POTASSIUM 3.8 mmol/L (3.5-5.1); SODIUM 150 mmol/L (136-145); TCO2 27 mmol/L (25-35); TOTAL BILIRUBIN 0.28 mg/dL (0.20-1.00)
[2016-12-26 10:31] LABS: UR AMPHETAMINES QUAL NONE DETECTED (NONE DETECT); UR BARBITUATES QUAL NONE DETECTED (NONE DETECT); UR BENZODIAZEPIN QUAL NONE DETECTED (NONE DETECT); UR CANNABINOIDS QUAL NONE DETECTED (NONE DETECT); UR COCAINE QUAL NONE DETECTED (NONE DETECT); UR METHADONE QUAL NONE DETECTED (NONE DETECT); UR OPIATES QUAL NONE DETECTED (NONE DETECT); UR OXYCODONE QUAL NONE DETECTED (NONE DETECT); UR PCP QUAL NONE DETECTED (NONE DETECT)
--- NOTE | 2016-12-26 12:23 | Diag Imaging Result Doc PS360 ---
EXAM: CT HEAD W/O CONTRAST HISTORY: unresponsive this am TECHNIQUE: CT of the head without contrast and reduced radiation dose COMMENT: There are calcifications in both vertebral and internal carotid arteries. There is no evidence of mass effect, bleed, abnormal extra-axial fluid collection, or hydrocephalus. There is a lacunar lucency in the anterior thalamus on the right. Compared to the previous study of 03/22/2016 the lacunar lesion in the thalamus on the right was not previously present but otherwise has been no appreciable change. The visualized paranasal sinuses are clear. There is no evidence of acute bony disease. IMPRESSION: Chronic ischemic changes. No evidence of acute disease. Electronically signed by Irving Kaur 12/26/2016 12:21 PM
[2016-12-26] MEDS ORDERED: D5 1/2 NS 1,000 ML IV ONE (15:10)
[2016-12-26] MEDS ORDERED: TYLENOL PO PRN (15:10)
[2016-12-26] MEDS ORDERED: ZOFRAN IV PRN (15:10)
[2016-12-26] MEDS ORDERED: D50W SYRINGE IV PRN (15:10)
[2016-12-26] MEDS: ZOSYN 3.375 GM in NS 50 ML IV SCH ×2 (15:18→20:17)
[2016-12-26] MEDS: COLACE PO SCH (20:18)
[2016-12-26] MEDS: FLOMAX PO SCH (20:18)
[2016-12-26] MEDS: LIPITOR PO SCH (20:18)
[2016-12-26] MEDS: MAG-OX PO SCH (20:18)
[2016-12-27 00:15] LABS: PREALBUMIN 13.9 mg/dL (20-40)
[2016-12-27] MEDS: ZOSYN 3.375 GM in NS 50 ML IV SCH ×4 (02:28→22:08)
[2016-12-27 05:55] LABS: MANUAL DIFF NEEDED? NO
[2016-12-27 06:01] LABS: BASO% 0.2 % (0.0-0.8); EOS% 2.2 % (0.0-10.0); HEMATOCRIT 39.5 % (42.0-52.0); HEMOGLOBIN 13.3 g/dL (14.0-18.0); IMM GRAN# 0.03 X1000 (0.0-0.04); IMM GRAN% 0.3 % (0.0-0.5); LYMPH# 1.26 X1000 (1.2-3.4); LYMPH% 14.1 % (20.5-51.1); MCH 31.2 PG (27-31); MCHC 33.7 g/dL (33-37); MCV 92.7 FL (81-99); MONO# 1.19 X1000 (0.11-0.59); MONO% 13.3 % (1.7-9.3); MPV 10.8 FL (7.4-10.4); NEUT% 69.9 % (42.2-75.2); PLT 266 X1000 (130-400); RBC 4.26 XMIL (4.7-6.1)
[2016-12-27] MEDS: PRILOSEC PO SCH (06:05)
[2016-12-27 06:09] LABS: INR 1.19; PROTIME 12.6 Seconds (9.2-11.7); PTT 31.8 Seconds (22.0-36.0)
[2016-12-27 06:23] LABS: AGAP 14; ALKALINE PHOSPHATASE 119 U/L (32-122); BUN 30 mg/dL (8-22); CALCIUM 8.9 mg/dL (8.8-10.2); CHLORIDE 103 mmol/L (98-107); COSMO 301; GOT 22 U/L (10-34); GPT 14 U/L (10-44); MAGNESIUM 1.8 mg/dL (1.5-2.7); POTASSIUM 3.2 mmol/L (3.5-5.1); SODIUM 145 mmol/L (136-145); TCO2 28 mmol/L (25-35); TOTAL BILIRUBIN 0.52 mg/dL (0.20-1.00); TOTAL PROTEIN 7.3 g/dL (6.3-8.3)
[2016-12-27] MEDS ORDERED: KLOR-CON PO ONE (08:09)
[2016-12-27] MEDS: COLACE PO SCH ×2 (09:54→22:45)
[2016-12-27] MEDS: NORVASC PO SCH (09:54)
[2016-12-27] MEDS: MAG-OX PO SCH ×2 (09:54→10:00)
[2016-12-27] MEDS: ASPIRIN PO SCH (09:54)
[2016-12-27] MEDS: PRINIVIL PO SCH (09:54)
[2016-12-27] MEDS: FLOMAX PO SCH ×2 (09:55→22:09)
[2016-12-27] MEDS: LOVENOX SUBQ SCH (09:55)
[2016-12-27] MEDS: LANTUS SUBQ SCH (09:55)
[2016-12-27] MEDS: HYGROTON PO SCH ×2 (10:49→13:22)
[2016-12-27] MEDS: LIPITOR PO SCH (22:09)
[2016-12-28] MEDS ORDERED: CALMOSEPTINE OINTMENT TOP PRN (00:08)
[2016-12-28] MEDS: ZOSYN 3.375 GM in NS 50 ML IV SCH ×4 (02:27→20:38)
[2016-12-28] MEDS: PRILOSEC PO SCH (06:02)
[2016-12-28] MEDS: LOVENOX SUBQ SCH (08:26)
[2016-12-28] MEDS: HYGROTON PO SCH (08:27)
[2016-12-28] MEDS: NORVASC PO SCH (08:27)
[2016-12-28] MEDS: LANTUS SUBQ SCH (08:27)
[2016-12-28] MEDS: FLOMAX PO SCH ×2 (08:27→20:39)
[2016-12-28] MEDS: PRINIVIL PO SCH (08:28)
[2016-12-28] MEDS: MAG-OX PO SCH ×2 (08:28→20:37)
[2016-12-28] MEDS: ASPIRIN PO SCH (08:28)
[2016-12-28] MEDS: COLACE PO SCH ×2 (08:28→20:37)
[2016-12-28 09:46] LABS: AGAP 11; BUN 24 mg/dL (8-22); CALCIUM 8.8 mg/dL (8.8-10.2); CHLORIDE 102 mmol/L (98-107); COSMO 295; POTASSIUM 2.9 mmol/L (3.5-5.1); SODIUM 142 mmol/L (136-145); TCO2 29 mmol/L (25-35)
[2016-12-28] MEDS: LIPITOR PO SCH (20:38)
[2016-12-29] MEDS: ZOSYN 3.375 GM in NS 50 ML IV SCH ×4 (05:07→17:25)
[2016-12-29 06:04] LABS: AGAP 14; BUN 29 mg/dL (8-22); CALCIUM 8.4 mg/dL (8.8-10.2); CHLORIDE 101 mmol/L (98-107); COSMO 303; POTASSIUM 2.7 mmol/L (3.5-5.1); SODIUM 143 mmol/L (136-145); TCO2 28 mmol/L (25-35)
[2016-12-29] MEDS: PRILOSEC PO SCH (06:45)
[2016-12-29] MEDS: HYGROTON PO SCH (08:57)
[2016-12-29] MEDS: PRINIVIL PO SCH (08:58)
[2016-12-29] MEDS: NORVASC PO SCH (08:58)
[2016-12-29] MEDS: COLACE PO SCH ×2 (08:58→23:07)
[2016-12-29] MEDS: ASPIRIN PO SCH (08:58)
[2016-12-29] MEDS: FLOMAX PO SCH ×2 (08:58→23:07)
[2016-12-29] MEDS: MAG-OX PO SCH ×2 (08:58→23:07)
[2016-12-29] MEDS: LANTUS SUBQ SCH (08:59)
[2016-12-29] MEDS: LOVENOX SUBQ SCH (08:59)
[2016-12-29] MEDS: HUMULIN R SUBQ SCH ×3 (13:41→23:06)
[2016-12-29] MEDS: LIPITOR PO SCH (23:07)
[2016-12-30] MEDS: ZOSYN 3.375 GM in NS 50 ML IV SCH ×4 (01:51→22:57)
[2016-12-30 06:14] LABS: AGAP 12; BUN 25 mg/dL (8-22); CALCIUM 8.9 mg/dL (8.8-10.2); CHLORIDE 102 mmol/L (98-107); COSMO 300; SODIUM 146 mmol/L (136-145); TCO2 32 mmol/L (25-35)
[2016-12-30] MEDS: HUMULIN R SUBQ SCH ×4 (07:44→23:01)
[2016-12-30] MEDS: LANTUS SUBQ SCH (10:43)
[2016-12-30] MEDS: FLOMAX PO SCH ×2 (10:44→23:04)
[2016-12-30] MEDS: LOVENOX SUBQ SCH (10:44)
[2016-12-30] MEDS: COLACE PO SCH ×2 (10:44→23:03)
[2016-12-30] MEDS: HYGROTON PO SCH (10:45)
[2016-12-30] MEDS: ASPIRIN PO SCH (10:45)
[2016-12-30] MEDS: MAG-OX PO SCH ×2 (10:45→23:04)
[2016-12-30] MEDS: PRINIVIL PO SCH (10:58)
[2016-12-30] MEDS: NORVASC PO SCH (10:58)
[2016-12-30] MEDS: PRILOSEC PO SCH (10:59)
[2016-12-30] MEDS: KLOR-CON PO SCH ×2 (10:59→23:04)
[2016-12-30] MEDS: LIPITOR PO SCH (23:04)
[2016-12-31 05:45] LABS: MANUAL DIFF NEEDED? NO
[2016-12-31 05:49] LABS: BASO% 0.1 % (0.0-0.8); EOS# 0.35 X1000 (0.0-0.7); EOS% 4.7 % (0.0-10.0); HEMATOCRIT 34.1 % (42.0-52.0); HEMOGLOBIN 11.5 g/dL (14.0-18.0); IMM GRAN# 0.03 X1000 (0.0-0.04); IMM GRAN% 0.4 % (0.0-0.5); LYMPH# 1.41 X1000 (1.2-3.4); LYMPH% 19.1 % (20.5-51.1); MCH 31.2 PG (27-31); MCHC 33.7 g/dL (33-37); MCV 92.4 FL (81-99); MONO# 0.68 X1000 (0.11-0.59); MONO% 9.2 % (1.7-9.3); MPV 10.5 FL (7.4-10.4); NEUT% 66.5 % (42.2-75.2); PLT 222 X1000 (130-400); RBC 3.69 XMIL (4.7-6.1)
[2016-12-31 06:28] LABS: AGAP 12; BUN 25 mg/dL (8-22); CALCIUM 9.2 mg/dL (8.8-10.2); CHLORIDE 99 mmol/L (98-107); COSMO 297; POTASSIUM 3.1 mmol/L (3.5-5.1); SODIUM 144 mmol/L (136-145); TCO2 33 mmol/L (25-35)
[2016-12-31] MEDS: HUMULIN R SUBQ SCH ×4 (06:28→21:32)
[2016-12-31] MEDS: PRILOSEC PO SCH (06:50)
[2016-12-31] MEDS: ZOSYN 3.375 GM in NS 50 ML IV SCH ×3 (06:50→18:01)
[2016-12-31] MEDS: LOVENOX SUBQ SCH (08:28)
[2016-12-31] MEDS: FLOMAX PO SCH ×2 (11:11→21:12)
[2016-12-31] MEDS: MAG-OX PO SCH ×2 (11:11→21:13)
[2016-12-31] MEDS: ASPIRIN PO SCH (11:13)
[2016-12-31] MEDS: COLACE PO SCH ×2 (11:13→21:12)
[2016-12-31] MEDS: HYGROTON PO SCH (11:14)
[2016-12-31] MEDS: KLOR-CON PO SCH ×2 (11:14→21:13)
[2016-12-31] MEDS: PRINIVIL PO SCH (11:15)
[2016-12-31] MEDS: LANTUS SUBQ SCH (11:17)
[2016-12-31] MEDS: NORVASC PO SCH (12:19)
[2016-12-31] MEDS: LIPITOR PO SCH (21:13)
[2017-01-01] MEDS: ZOSYN 3.375 GM in NS 50 ML IV SCH ×4 (02:20→23:02)
[2017-01-01 05:58] LABS: AGAP 12; BUN 17 mg/dL (8-22); CALCIUM 8.7 mg/dL (8.8-10.2); CHLORIDE 98 mmol/L (98-107); COSMO 292; POTASSIUM 3.1 mmol/L (3.5-5.1); SODIUM 144 mmol/L (136-145); TCO2 34 mmol/L (25-35)
[2017-01-01] MEDS: HUMULIN R SUBQ SCH ×4 (06:15→22:29)
[2017-01-01] MEDS: PRILOSEC PO SCH (06:36)
[2017-01-01] MEDS: LANTUS SUBQ SCH (08:41)
[2017-01-01] MEDS: LOVENOX SUBQ SCH (08:41)
[2017-01-01] MEDS: PRINIVIL PO SCH (08:44)
[2017-01-01] MEDS: NORVASC PO SCH (08:44)
[2017-01-01] MEDS: FLOMAX PO SCH ×3 (08:45→22:27)
[2017-01-01] MEDS: HYGROTON PO SCH (08:45)
[2017-01-01] MEDS: MAG-OX PO SCH ×3 (08:46→22:28)
[2017-01-01] MEDS: KLOR-CON PO SCH ×3 (08:46→22:27)
[2017-01-01] MEDS: ASPIRIN PO SCH (08:47)
[2017-01-01] MEDS: COLACE PO SCH ×3 (08:47→22:26)
[2017-01-01] MEDS ORDERED: POTASSIUM CHLORIDE 60 MEQ in NS 500 ML IV ONE (10:30)
[2017-01-01 11:53] LABS: HEMOGLOBIN A1C 7.3 % (4.8-6.0)
[2017-01-01] MEDS ORDERED: NS 1,000 ML ONE (13:18)
[2017-01-01] MEDS: LIPITOR PO SCH ×2 (19:55→22:28)
[2017-01-02] MEDS: ZOSYN 3.375 GM in NS 50 ML IV SCH (04:48)
[2017-01-02] MEDS: HUMULIN R SUBQ SCH ×2 (06:22→14:08)
[2017-01-02 06:40] LABS: AGAP 9; BUN 17 mg/dL (8-22); CALCIUM 9.2 mg/dL (8.8-10.2); CHLORIDE 101 mmol/L (98-107); COSMO 286; POTASSIUM 3.7 mmol/L (3.5-5.1); SODIUM 141 mmol/L (136-145); TCO2 31 mmol/L (25-35)
[2017-01-02] MEDS: ASPIRIN PO SCH (08:57)
[2017-01-02] MEDS: PRILOSEC PO SCH (08:57)
[2017-01-02] MEDS: PRINIVIL PO SCH (08:57)
[2017-01-02] MEDS: LOVENOX SUBQ SCH (08:57)
[2017-01-02] MEDS: COLACE PO SCH (08:57)
[2017-01-02] MEDS: FLOMAX PO SCH (08:57)
[2017-01-02] MEDS: KLOR-CON PO SCH (08:58)
[2017-01-02] MEDS: MAG-OX PO SCH (08:58)
[2017-01-02] MEDS: LANTUS SUBQ SCH (08:58)
[2017-01-02] MEDS: NORVASC PO SCH (08:58)
[2017-01-02 12:50] VITALS: BP 136/58
== END 2017-01-02 15:52 ==
LOC: ED 09:25 → EDIPHOLD 15:30 → SUATTDRO 15:30 → 4N 15:53
PROVIDERS: ATTEND Internal Medicine